=== PATIENT | female | born 1975 | race Two or more races ===

== ENCOUNTER 2017-01-19 20:24 | Inpatient (IN) | payer OTHER ==
--- NOTE | 2017-01-19 21:08 | EDPHY ---
H & P Time Seen by Provider: 01/19/17 21:02 HPI/ROS: CHIEF COMPLAINT: Upper back pain HISTORY OF PRESENT ILLNESS: This patient is a 41 year old female who presents to the Emergency Department complaining of severe pain (9/10) localized to her right upper back and radiating to her right anterior chest beginning approximately one week prior to arrival. Her pain is exacerbated by lying down and has not been effectively alleviated with Motrin. She reports exertional shortness of breath with intermittent dry cough beginning yesterday. She denies pain or swelling in her legs. She was sick two weeks ago with intermittent high fever, nausea, and body aches lasting for approximately two weeks that have since improved. She traveled to [place] on 01/14 and was admitted on 01/16 for pain control for her back pain while in [place]. Medical history includes asthma. No history of blood clots or pneumonia. REVIEW OF SYSTEMS: Constitutional: No fever, no chills Eyes: No visual changes ENT: No sore throat Respiratory: +cough, +shortness of breath Cardiac: +chest pain Gastrointestinal: No nausea, no vomiting, no abdominal pain Genitourinary: No hematuria, no dysuria Musculoskeletal: +upper back pain, no leg pain or swelling Skin: No rash Neurological: No headache, no numbness, no weakness Psychiatric: No depression Past Medical/Surgical History: Asthma. Social History: Never smoked. Lives in [place]. Smoking Status: Never smoked Physical Exam: General Appearance: Alert, no distress Eyes: Pupils equal and round, no conjunctival pallor or injection ENT, Mouth: Mucous membranes moist Neck: Normal inspection Respiratory: Lungs are clear to auscultation Cardiovascular: Regular rate and rhythm Gastrointestinal: Abdomen is soft and non- tender Neurological: A&O, nonfocal, normal gait Skin: Warm and dry, no rash Extremities: Nontender, no pedal edema Psychiatric: Mood and affect normal Constitutional: Initial Vital Signs Temperature (C) 37.1 C 01/19/17 20:29 Heart Rate 106 H 01/19/17 20:29 Respiratory Rate 16 01/19/17 20:29 Blood Pressure 135/86 H 01/19/17 20:29 O2 Sat (%) 91 L 01/19/17 20:29 O2 Delivery Mode Nasal Cannula O2 (L/minute) 3 Allergies/Adverse Reactions: bee pollen Allergy (Verified 01/19/17 20:28) cantaloupe Allergy (Uncoded 01/19/17 20:28) honeydew Allergy (Uncoded 01/19/17 20:28) peaches Allergy (Uncoded 01/19/17 20:28) Home Medications: Medication Instructions Recorded Albuterol [Proventil Inhaler HFA 2 puffs IH Q4 PRN 01/20/17 (*)] Vashti 24hr Tab 1 tab PO DAILY 01/20/17 Herbals/Supplements -Info Only 1 ea PO DAILY 01/20/17 Naproxen Sodium [Aleve 220 MG (*)] 440 mg PO BID PRN 01/20/17 Medical Decision Making - Diagnostics Imaging: Study: X-ray of the chest Indication: Shortness of breath, chest pain Results: X-ray of the chest was obtained. The results of the study are: Diffuse right hemithoracic pleural-parenchymal abnormality, of indeterminate etiology. The study was read by the radiologist, Dr. David Sandoval. I viewed the images myself on the PACS system. Study: CT of the chest Indication: Shortness of breath, pain, abnormal x-ray of chest Results: CT of the chest with IV contrast was obtained. The results of the study are: Diffuse subtotal right hemithoracic pleuroparenchymal consolidation with a large right pleural effusion, and areas of compressive atelectasis and/or infiltrate. The study was read by the radiologist, Dr. David Sandoval. I viewed the images myself on the PACS system. ED Course/Re-evaluation: This pt presents with sever right-sided chest pain after an influenza like syndrome. Will proceed with x-ray of the chest and labs. Chest x-ray is abnormal, with a likely effusion involving the right marbella thorax. I discussed this result with the patient and obtained her consent to proceed with CT of the chest without IV contrast. Labs obtained: WBC is elevated at 27.05. Flu screen is negative. Meets SIRS criteria. Additional labs obtained for sepsis screen: Lactate is within normal range at 1.4. Does not meet severe sepsis criteria. Blood cultures were drawn. CT scan of the chest read by Dr. Sandoval reveals a large right pleural effusion and possible right-sided infiltrate. 2255: Consultation with Dr. Jose E Estrada, hospitalist, who reviewed imaging results and accepts admission. Dr. Fuad Gloria was consulted for chest tube placement. Antibiotics per Dr. Jose E Estrada after the pleural fluid is obtained. Differential Diagnosis: Differential diagnosis includes does not limited to acute coronary syndrome, pneumonia, pulmonary embolism, tumor. - Data Points Laboratory Results: Laboratory Results 01/20/17 04:15 01/20/17 04:15 01/20/17 01/20/17 01/20/17 09:40 04:15 04:15 WBC RBC Hgb Hct MCV MCH MCHC RDW Plt Count MPV Neut % (Auto) Lymph % (Auto) Dolores % (Auto) Eos % (Auto) Baso % (Auto) Nucleat RBC Rel Count Absolute Neuts (auto) Absolute Lymphs (auto) Absolute Monos (auto) Absolute Eos (auto) Absolute Basos (auto) Absolute Nucleated RBC Immature Gran % Seg Neutrophils % Band Neutrophils % Lymphocytes % Monocytes % Metamyelocytes % Immature Gran # Absolute Seg Neuts Absolute Band Neuts Absolute Lymphocytes Absolute Monocytes Absolute Metamyelocyte Platelet Estimate Large Platelets Giant Platelets Polychromasia Hypochromasia Sodium 136 mEq/L mEq/L (134-144) Potassium 4.8 mEq/L mEq/L (3.5-5.2) Chloride 107 mEq/L mEq/L (97-110) Carbon Dioxide 20 mEq/l L mEq/l (22-31) Anion Gap 9 mEq/L mEq/L (8-16) BUN 22 mg/dL mg/dL (7-23) Creatinine 1.3 mg/dL H mg/dL (0.6-1.0) Estimated GFR 45 Glucose 84 mg/dL mg/dL (70-100) Calcium 7.8 mg/dL L mg/dL (8.5-10.4) Fl Pathologist Review Pleural LDH HIV 1&2 Antibody Pending Influenza A & B (PCR) NEGATIVE FOR FLU (NEGATIVE) 01/20/17 01/20/17 04:15 02:35 WBC 20.17 10^3/uL H 10^3/uL (3.80-9.50) RBC 3.52 10^6/uL L 10^6/uL (4.18-5.33) Hgb 9.3 g/dL L g/dL (12.6-16.3) Hct 28.4 % L % (38.0-47.0) MCV 80.7 fL L fL (81.5-99.8) MCH 26.4 pg L pg (27.9-34.1) MCHC 32.7 g/dL g/dL (32.4-36.7) RDW 16.5 % H % (11.5-15.2) Plt Count 419 10^3/uL H 10^3/uL (150-400) MPV 11.6 fL fL (8.7-11.7) Neut % (Auto) Not Reported Lymph % (Auto) Not Reported Dolores % (Auto) Not Reported Eos % (Auto) Not Reported Baso % (Auto) Not Reported Nucleat RBC Rel Count 0.0 % % (0.0-0.2) Absolute Neuts (auto) Not Reported Absolute Lymphs (auto) Not Reported Absolute Monos (auto) Not Reported Absolute Eos (auto) Not Reported Absolute Basos (auto) Not Reported Absolute Nucleated RBC 0.00 10^3/uL 10^3/uL (0-0.01) Immature Gran % Not Reported Seg Neutrophils % 74 % % Band Neutrophils % 13 % % Lymphocytes % 11 % % Monocytes % 1 % % Metamyelocytes % 1 % % Immature Gran # Not Reported Absolute Seg Neuts 14.93 10^/uL H 10^/uL (1.70-6.50) Absolute Band Neuts 2.62 10^3/uL H 10^3/uL (0.00-0.70) Absolute Lymphocytes 2.22 10^3/uL 10^3/uL (1.00-3.00) Absolute Monocytes 0.20 10^3/uL L 10^3/uL (0.30-0.80) Absolute Metamyelocyte 0.20 10^3/mL H 10^3/mL (0.00-0.00) Platelet Estimate ADEQUATE (ADEQ) Large Platelets PRESENT H Giant Platelets PRESENT H Polychromasia 1+ H Hypochromasia 1+ H Sodium Potassium Chloride Carbon Dioxide Anion Gap BUN Creatinine Estimated GFR Glucose Calcium Fl Pathologist Review Harvey MACHUCA MD Pleural LDH > 72503 IU/L IU/L HIV 1&2 Antibody Influenza A & B (PCR) Microbiology Results: MICROBIOLOGY 01/20/17 02:35 Pleural Fluid - Other Gram Stain - Final 01/20/17 02:35 Pleural Fluid - Other Body Fluid Culture - Preliminary 01/20/17 00:12 Lung - Lung ERIC Preparation - Final Medications Given: Discontinued Medications Fentanyl (Sublimaze) 100 mcg IVP EDNOW ONE Stop: 01/20/17 00:30 Last Admin: 01/19/17 23:55 Dose: 100 mcg Departure - Departure Disposition: [facility] Inpatient Acute Clinical Impression: Pleural effusion Condition: Fair Report Scribed for: Iliana Hernandez Report Scribed by: Coco Chang Date of Report: 01/19/17 Time of Report: 21:08 Physician Review and Approval Statement: 01/19/17 21:08 Portions of this note were transcribed by a medical appointment scheduler. I personally performed a history, physical exam, medical decision making, and confirmed accuracy of information the transcribed note.
[2017-01-19 21:53] LABS: ADD DIFF? YES; ADD MORPH? NO; ADD SCAN? NO; ATYPICAL LYMPHOCYTE FLAG 10 (0-99); FRAGMENT RBC FLAG 40 (0-99); HEMATOCRIT 31.9 % (38.0-47.0); HEMOGLOBIN 10.3 g/dL (12.6-16.3); LEFT SHIFT FLG 20 (0-99); LIPEMIA HEMOLYSIS FLAG 80 (0-99); MEAN CELL HEMOGLOBIN 26.3 pg (27.9-34.1); MEAN CELL HEMOGLOBIN CONCENTR. 32.3 g/dL (32.4-36.7); MEAN CELL VOLUME 81.4 fL (81.5-99.8); MEAN PLATELET VOLUME 11.9 fL (8.7-11.7); PLATELET CLUMPS FLAG 0 (0-99); PLATELET COUNT 440 10^3/uL (150-400); RED BLOOD CELL COUNT 3.92 10^6/uL (4.18-5.33); RED CELL DISTRIBUTION WIDTH 16.6 % (11.5-15.2)
[2017-01-19 22:07] LABS: INR 1.26 (0.83-1.16); PROTIME(PATIENT) 15.8 SEC (12.0-15.0)
[2017-01-19 22:08] LABS: APTT 31.4 SEC (23.0-38.0)
[2017-01-19 22:10] LABS: ANION GAP 14 mEq/L (8-16); CALCIUM 8.4 mg/dL (8.5-10.4); CARBON DIOXIDE 21 mEq/l (22-31); CHLORIDE 106 mEq/L (97-110); CREATININE 1.3 mg/dL (0.6-1.0); GLOMERULAR FILTRATION RATE 45; GLUCOSE 94 mg/dL (70-100); POTASSIUM 4.4 mEq/L (3.5-5.2); SODIUM 141 mEq/L (134-144)
[2017-01-19] MEDS ORDERED: IOPAMIDOL (ISOVUE-300) 100 ML BTL IV ONE (22:11)
[2017-01-19 22:45] LABS: TOXIC VACUOLIZATION PRESENT
[2017-01-19 22:52] LABS: POLYCHROMASIA 1+
[2017-01-19 22:55] LABS: GIANT PLATELETS PRESENT; HYPOCHROMIA 1+; LARGE PLATELETS PRESENT; PLATELET ESTIMATE ADEQUATE (ADEQ)
[2017-01-19] MEDS ORDERED: ONDANSETRON 4 MG/2 ML VIAL IVP PRN (23:09)
[2017-01-19] MEDS ORDERED: fentaNYL 100 MCG/2 ML INJ ONE (23:53)
--- NOTE | 2017-01-20 00:06 | GHP ---
DATE OF ADMISSION: 01/19/2017 CHIEF COMPLAINT: Right-sided chest and back pain. HISTORY OF PRESENT ILLNESS: This is a 41-year-old female, who presents with right-sided chest and b ack pain. History is notable for having "the flu" about 2 weeks ago. Her symptoms at that time inc luded cough, high fever, and myalgias. She was never tested for the flu nor did she see a physician . She says that this lasted about 12 days. This resolved earlier this week while she was in [place] . She then had subacute onset of right-sided chest and back pain described as severe. This is also associated with some shortness of breath. She presented to a hospital in [place], at which time the y did a lumbar spine x-rays. They determined that the cause of this was musculoskeletal and dischar ged her. Notably, they never imaged her chest and thorax. She presents to the hospital today with ongoing symptoms. She believes that she had a fever last 3 days ago. She notes that she has had no trauma recently. She does not smoke. PAST MEDICAL HISTORY: Asthma. MEDICATIONS: Albuterol, Vashti, Aleve. ALLERGIES: Bee pollen, cantaloupe, honeydew, and peaches. FAMILY HISTORY: No lung disease. SOCIAL HISTORY: She lives in a condo. She does drink. She does not smoke. REVIEW OF SYSTEMS: Ten-point review of systems is conducted, and is negative except per HPI. PHYSICAL EXAM: VITAL SIGNS: Blood pressure is 135/86, heart rate is 106, respiration rate 16, satu rating 91% on room air. Temperature is 37.1. GENERAL: The patient is a pleasant female who is lyi ng in bed. She appears in moderate respiratory distress. HEENT: Shows pupils to be equal, round, and reactive. Mucous membranes are moist. HEAD: Normocephalic, atraumatic. CARDIOVASCULAR: Exam shows regular rate and rhythm. She is borderline tachycardic. No murmurs, rubs, or gallops. PULM ONARY: Exam shows markedly diminished breath sounds on the right. Otherwise, she is clear to auscu ltation bilaterally. She is in some respiratory distress. ABDOMEN: Soft, nontender, nondistended. SKIN: Shows no rash. : Shows no Mcmillan. NEUROLOGIC: Shows her to be alert and oriented x3. S he is moving all extremities. PSYCHIATRIC: Exam shows normal mood and affect. LABORATORY DATA: White count is 27, hemoglobin is 10.3, platelets are 440, this is 81% neutrophils with 8% bandemia. INR is 1.26. Lactate is 1.4. Creatinine is 1.3. Influenza is negative. DATA: 1. I discussed this with Dr. Hernandez. We will plan to admit to med/surgery. 2. Chest CT, which I personally viewed and interpreted, shows diffuse subtotal right hemithoracic p leural parenchymal consolidation, with a large right pleural effusion, with compressive atelectasis. 3. Chest x-ray, which I personally reviewed and interpreted, shows likely a large right-sided pleur al effusion. IMPRESSION AND PLAN: 1. This is a 41-year-old female with large right-sided pleural effusion concerning for parapneumoni c versus empyema. Dr. Gloria has been consulted; he has seen the patient now. We will discuss w ith him the need for possible chest tube. Regardless, would like to sample some fluid tonight, and start antibiotics, given her markedly high white count and dyspnea. I placed an Infectious Disease consult. I think she is appropriate for a med/surgery bed. This is an overall high-risk diagnosis. 2. Leukocytosis: Likely related to this. 3. Anemia: Unclear chronicity. Will recheck tomorrow. 4. Thrombocytosis: Likely reactive. 5. Likely mild acute kidney injury: Will hydrate and recheck tomorrow. /[id number]/MODL
--- NOTE | 2017-01-20 00:24 | POSTOPPROG ---
Post Op Note Date of Operation: 01/20/17 Surgeon: Fuad Gloria Anesthesia: IV Sedation, Local (Specify) Pre-op Diagnosis: r empyema Post-op Diagnosis: same Indication: same Procedure: right chest tube placement Inf/Abcess present in the surg proc area at time of surgery?: Yes Depth: Organ Space EBL: Minimal (cultures sent)
[2017-01-20] MEDS ORDERED: fentaNYL 100 MCG/2 ML INJ IVP ONE (00:29)
--- NOTE | 2017-01-20 00:57 | GOP ---
DATE OF OPERATION: SURGEON: Fuad Gloria MD PREOPERATIVE DIAGNOSIS: Right empyema/infected parapneumonic effusion. POSTOPERATIVE DIAGNOSIS: Right empyema/infected parapneumonic effusion. PROCEDURE PERFORMED: Right chest tube. FINDINGS: INDICATIONS: A 41-year-old female admitted through the emergency room. CAT scan shows 80% of the r ight chest full of fluid, with a compressed lung cephalad. The patient has had a flu-like illness r ecently. White count 27,000. DESCRIPTION OF PROCEDURE: After informed consent and a time out, the patient was positioned right s argenis up on her side. The chest laterally scrubbed with ChloraPrep, draped in the usual sterile fashi on. Lidocaine was infiltrated over the midclavicular line. Approximately 4th or 5th interspace, an incision made, and additional lidocaine infiltrated in the fat. A clamp was used to get down to th e intercostal musculature where additional lidocaine was infiltrated. Synthetic clamp was then philipp ed into the rib space in a completely painless fashion. Cloudy fluid was obtained, no odor. A ches t tube placed, and approximately 2000 mL of fluid immediately obtained. The tube was sewn with 0 si lk to the patient, and the incision closed down with additional 0 silk sutures. A gauze dressing wa s applied, and then bulky tape to secure the chest tube. A chest x-ray post procedure was ordered. Patient tolerated the procedure well. SURGEON: Fuad Gloria MD. /[id number]/MODL
[2017-01-20] MEDS: NS 1,000 ML IV SCH ×2 (01:03→12:02)
[2017-01-20] MEDS: PIPERACILLIN/TAZO 4.5 GM/DEX 100 ML IV SCH ×5 (01:39→23:20)
[2017-01-20 05:21] LABS: LD, PLEURAL FLUID > 10000 IU/L
[2017-01-20 06:21] LABS: ADD DIFF? YES; ADD MORPH? NO; ADD SCAN? NO; ATYPICAL LYMPHOCYTE FLAG 0 (0-99); FRAGMENT RBC FLAG 40 (0-99); HEMATOCRIT 28.4 % (38.0-47.0); HEMOGLOBIN 9.3 g/dL (12.6-16.3); LEFT SHIFT FLG 20 (0-99); LIPEMIA HEMOLYSIS FLAG 80 (0-99); MEAN CELL HEMOGLOBIN 26.4 pg (27.9-34.1); MEAN CELL HEMOGLOBIN CONCENTR. 32.7 g/dL (32.4-36.7); MEAN CELL VOLUME 80.7 fL (81.5-99.8); MEAN PLATELET VOLUME 11.6 fL (8.7-11.7); PLATELET CLUMPS FLAG 30 (0-99); PLATELET COUNT 419 10^3/uL (150-400); RED BLOOD CELL COUNT 3.52 10^6/uL (4.18-5.33); RED CELL DISTRIBUTION WIDTH 16.5 % (11.5-15.2)
--- NOTE | 2017-01-20 06:49 | SOAPPROG ---
SOAP Progress Note Assessment/Plan: Assessment: Plan: Subjective: feels better ct tube in good location, 2100 out total. possible tiny air leak this am. continue water seal. Objective: Vital Signs Temp Pulse Resp BP Pulse Ox 36.7 C 83 16 124/68 H 94 01/20/17 04:21 01/20/17 04:21 01/20/17 04:21 01/20/17 04:21 01/20/17 04:21 Laboratory Results 01/20/17 04:15 01/19/17 01/20/17 01/21/17 05:59 05:59 05:59 Intake Total 1120 Output Total 67 Balance 1053 PT 15.8 SEC (12.0-15.0) H 01/19/17 21:30 INR 1.26 (0.83-1.16) H 01/19/17 21:30 ICD10 Worksheet Patient Problems: Problems Problem Status Onset Pleural effusion Acute
[2017-01-20 06:54] LABS: ANION GAP 9 mEq/L (8-16); CALCIUM 7.8 mg/dL (8.5-10.4); CARBON DIOXIDE 20 mEq/l (22-31); CHLORIDE 107 mEq/L (97-110); CREATININE 1.3 mg/dL (0.6-1.0); GLOMERULAR FILTRATION RATE 45; GLUCOSE 84 mg/dL (70-100); POTASSIUM 4.8 mEq/L (3.5-5.2); SODIUM 136 mEq/L (134-144)
[2017-01-20] MEDS: oxyCODONE IR 5 MG TAB PO PRN ×5 (07:27→22:32)
[2017-01-20 07:48] LABS: GIANT PLATELETS PRESENT; HYPOCHROMIA 1+; LARGE PLATELETS PRESENT; PLATELET ESTIMATE ADEQUATE (ADEQ); POLYCHROMASIA 1+
[2017-01-20] MEDS ORDERED: ALBUTEROL 60 PUFFS/8 GM MDI IH PRN (09:42)
--- NOTE | 2017-01-20 09:51 | HOSPPROG ---
Hospitalist Progress Note Assessment/Plan: Patient is a 41 y/o female who presented to the ER with right-sided chest pain and back pain. She had been feeling poorly, flu like symptoms. Never quite improved but went to [place] and developed severe right sided chest pain. Reviewed her care with Dr Banerjee/ today is my first encounter with the patient, chart reviewed. #. right sided pleural effusion/right side empyema -Zosyn -s/p CT placement w Dr Gloria -appreciate Dr Banerjee #. Leukocytosis -wbc improving, but still elevated #. anemia -follow -likely due to acute illness #. tachycardia -due to acute illness #. renal insufficiency -will follow and hydrate #. asthma -resume inhaler and add neb treatments #.dispo: patient will require > 2 midnight stay for IV abx and has a CT placed Subjective: Diana is feeling better today / CT is uncomfortable, but the overall pain is better in her right cw area. Objective: Vital Signs Temp Pulse Resp BP Pulse Ox 36.6 C 82 20 119/62 97 01/20/17 07:42 01/20/17 07:42 01/20/17 07:42 01/20/17 07:42 01/20/17 07:42 Microbiology 01/20/17 02:35 Gram Stain - Final Pleural Fluid - Other Laboratory Results 01/20/17 04:15 01/20/17 04:15 01/19/17 01/20/17 01/21/17 05:59 05:59 05:59 Intake Total 1120 Output Total 67 Balance 1053 PT 15.8 SEC (12.0-15.0) H 01/19/17 21:30 INR 1.26 (0.83-1.16) H 01/19/17 21:30 - Physical Exam Constitutional: appears nourished, uncomfortable Eyes: anicteric sclera Ears, Nose, Mouth, Throat: hearing normal Cardiovascular: regular rate and rhythym Respiratory: no respiratory distress, reduced air movement (right base thru the middle lobe/ has some scattered expiratory wheezes bilaterally) Gastrointestinal: normoactive bowel sounds Skin: warm, normal color, other (multiple tattoos) Musculoskeletal: no muscle tenderness Neurologic: AAOx3 Psychiatric: interacting appropriately, not anxious ICD10 Worksheet Patient Problems: Problems Problem Status Onset Pleural effusion Acute
--- NOTE | 2017-01-20 10:17 | GCON ---
INFECTIOUS DISEASE CONSULTATION REFERRING PHYSICIAN: Jose E Estrada MD REASON FOR CONSULT: To assist in the management of this 41-year-old female admitted with right-sided empyema status post drainage. HISTORY OF PRESENT ILLNESS: The patient is a 41-year-old female whose previous medical history is notable for the followin. Inhaler-controlled asthma. Regarding her present issues, the patient states that she was in her usual state of good health until approximately 2 weeks ago, when she developed a flu- like illness consisting of myalgias, chills, tactile fevers, and sweats. She denies any respiratory symptoms or GI symptoms at that time. She states that the illness lasted approximately 12 days and, when she traveled to [facility] on January 14, she was feeling much better. She was feeling "decent," but tired. The day that she arrived in [place], that evening she was woken from sleep by severe pain underneath her right breast. On Saturday this continued to get worse , so she saw the [place] doctor who did an x-ray of her back (not her chest). She got a shot of an unknown narcotic and, because of her severe pain, they kept her overnight in a private hospital in [facility]. She states that she was given morphine and a muscle relaxant, but no chest x-ray was done. She states that she did not have a fever during that time, but was taking nonsteroidals. She was discharged on Saturday with a prescription for tramadol and a nonsteroidal. On , she states that the pain was severe, requiring Aleve around the clock. It continued on Saturday. Yesterday, she flew home to [place] and came directly to our emergency department. She states that over the past 48 hours her breathing has become more labored and she has become significantly short of breath. She did have chills, but did not take her temperature to see whether or not she had a fever. In our emergency department, the patient's temperature was 37.1, respiratory rate 16, blood pressure 135/86. A chest x-ray done was done revealing diffuse right hemithoracic pleural-parenchymal abnormality necessitating a CT scan. The CT scan showed "diffuse subtotal right hemithoracic pleural-parenchymal consolidation with large right pleural effusion and areas of compressive atelectasis and/or infiltrate." The patient was seen by Dr. Fuad Gloria, who inserted a chest tube given the patient's large pleural effusion. Approximately 2000 cc of cloudy fluid was removed without odor. The patient tolerated the procedure with no consequential pneumothorax. I called the [facility], and the Gram stain shows 1+ GPCs. She was started on Zosyn, and I am now asked to assist in her management. In speaking with the patient today, she states she feels much better after the chest tube insertion. She feels that she can breathe easier. Aside from the shortness of breath, she states that she has not had a cough per se, but has felt quite tired. She also states she has had some mild dysuria over the past 48 hours, which is gone now. She states she traveled to [place] with her sister and essentially did not do much the entire time other than lay on the sand because she was feeling so unwell. She did not do anything unusual while she was there. REVIEW OF SYSTEMS: Notable for the above. Otherwise, 10 systems reviewed and all are negative. She denies any weight loss, significant anorexia, drenching night sweats, or other. PAST MEDICAL HISTORY: As per the above. MEDICATIONS: Presently include Zosyn 4.5 g IV q.6 hours. ALLERGIES: Multiple food allergies, but no medication allergies. SOCIAL HISTORY: The patient lives in [place] with a female roommate who was well. She has 2 indoor cats. She is single and has no children. She has sex only with men and has a current stable partner. 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 She drinks minimal alcohol. No illicit substances, other than occasional marijuana. No history of hepatitis C. She has not been incarcerated or in imprisoned. She states travel to [place] last year where her family is from for just a brief period when her grandmother . No other unusual exposures. Last mammogram 1 year ago, which was negative. FAMILY HISTORY: Notable for 2 sisters who are healthy. Mother and father who are healthy save for hypertension in her father. PHYSICAL EXAM: VITAL SIGNS: T-current 36.6, T-max 37.1. Heart rate 82, blood pressure 119/62, 97% on 3 L. GENERAL: A well-nourished, well-developed female , lying in bed, no apparent distress. HEENT: Atraumatic, normocephalic. Pupils equal, round, reactive to light. Extraocular movements are intact. No conjunctival injection. No icterus or petechiae. No sinus process tenderness or discharge from the nares. Mucous membranes moist. No oral lesions noted. Dentition in fair repair. No thrush. NECK: Trachea is midline. No cervical or supraclavicular lymphadenopathy. CARDIOVASCULAR: S1, S2. No rubs, gallops , or murmurs. CHEST: Pendulous breasts. No obvious breast abnormality. LUNGS : Chest tube is in place on the right draining some serosanguineous fluid. Decreased breath sounds throughout the right lung field. The left lung is clear with no wheeze. No significant increased respiratory effort. ABDOMEN: Obese, soft. No organomegaly or tenderness to palpation. EXTREMITIES: No clubbing, cyanosis, or edema. SKIN: Warm and dry. Multiple tattoos. The patient has her tongue pierced and her right eyebrow pierced. No stigmata of endocarditis. NEUROLOGIC: Alert and oriented x3. No focal deficits. LABORATORY DATA: Microbiologic data: Pleural fluid Gram stain. I called the Micro Lab. It is showing 1+ GPCs. Culture is pending. Blood cultures x2 are pending. White blood cell count of 20, down from 27. Hematocrit of 28, platelet count of 419, 74% neutrophils, 13% bands. INR 1.2. BUN and creatinine 22/1.3. No previous creatinine on file for this patient. Pleural fluid was red and cloudy. PH of 7, white blood cells of 59,984, 84% neutrophils. Red blood cells of 126,067. Pleural fluid LDH greater than 10,000. Pleura glucose less than 20. Influenza DFA was negative. Radiographic studies as outlined above. IMPRESSION: 41-year-old otherwise healthy female, status post flu-like illness approximately 2 weeks ago, who now presents with right-sided empyema. Pathogens to consider after what may have been influenza include Staphylococcus aureus, Streptococcus pneumoniae, and group A strep. Strep milleri group, microaerophilic streptococci, anaerobes, also possible. Fusobacterium seems less likely given Gram stain. Doubt other more unusual organisms such as coccidiomycosis given that the patient's symptoms proceeded her brief trip. PLAN: 1. Continue Zosyn as is for now and await culture results; suspect we will be able to tailor the patient's antibiotic in short order as Pseudomonas unlikely. 2. Obtain HIV antibody test for completeness' sake. 3. Blood cultures are pending. Thank you very much for consulting Infectious Diseases. We will continue to follow this patient with you. /[id number]/MODL MTDD
[2017-01-20] MEDS: IPRATROPIUM/ALBUTEROL 3 ML DEYVIAL IH SCH ×3 (11:26→22:41)
[2017-01-21] MEDS: oxyCODONE IR 5 MG TAB PO PRN ×5 (01:15→23:19)
[2017-01-21] MEDS: NS 1,000 ML IV SCH ×3 (01:17→21:42)
[2017-01-21] MEDS: PIPERACILLIN/TAZO 4.5 GM/DEX 100 ML IV SCH ×4 (05:16→23:19)
[2017-01-21 05:17] LABS: ADD DIFF? YES; ADD MORPH? NO; ADD SCAN? NO; ATYPICAL LYMPHOCYTE FLAG 30 (0-99); FRAGMENT RBC FLAG 20 (0-99); HEMATOCRIT 26.9 % (38.0-47.0); HEMOGLOBIN 8.5 g/dL (12.6-16.3); LEFT SHIFT FLG 30 (0-99); LIPEMIA HEMOLYSIS FLAG 80 (0-99); MEAN CELL HEMOGLOBIN 26.2 pg (27.9-34.1); MEAN CELL HEMOGLOBIN CONCENTR. 31.6 g/dL (32.4-36.7); MEAN PLATELET VOLUME 10.9 fL (8.7-11.7); PLATELET CLUMPS FLAG 0 (0-99); PLATELET COUNT 424 10^3/uL (150-400); RED BLOOD CELL COUNT 3.24 10^6/uL (4.18-5.33); RED CELL DISTRIBUTION WIDTH 16.7 % (11.5-15.2)
[2017-01-21] MEDS: IPRATROPIUM/ALBUTEROL 3 ML DEYVIAL IH SCH ×4 (05:24→22:37)
[2017-01-21 05:29] LABS: ALANINE AMINOTRANSFERASE 29 IU/L (9-52); ALBUMIN 2.1 g/dL (3.5-5.0); ALKALINE PHOSPHATASE 112 IU/L (38-126); ANION GAP 7 mEq/L (8-16); ASPARTATE AMINOTRANSFERASE 23 IU/L (14-46); BILIRUBIN,TOTAL 0.5 mg/dL (0.1-1.4); CALCIUM 7.7 mg/dL (8.5-10.4); CARBON DIOXIDE 24 mEq/l (22-31); CHLORIDE 105 mEq/L (97-110); CREATININE 1.2 mg/dL (0.6-1.0); GLOMERULAR FILTRATION RATE 49; GLUCOSE 84 mg/dL (70-100); POTASSIUM 4.7 mEq/L (3.5-5.2); SODIUM 136 mEq/L (134-144); TOTAL PROTEIN 6.1 g/dL (6.3-8.2)
[2017-01-21 06:10] LABS: PLATELET ESTIMATE INCREASED (ADEQ)
[2017-01-21] MEDS: ONDANSETRON DISINTEGRATING 4 MG TAB PO PRN (07:32)
[2017-01-21] MEDS: ACETAMINOPHEN 325 MG TAB PO PRN ×2 (08:56→21:41)
[2017-01-21] MEDS ORDERED: Herbals/Supplements -Info Only PO SCH (09:00)
[2017-01-21] MEDS ORDERED: PROMETHAZINE HCL 25 MG TAB PO PRN (09:28)
[2017-01-21] MEDS ORDERED: IBUPROFEN 200 MG TAB PO ONE ×2 (09:29→13:24)
--- NOTE | 2017-01-21 09:31 | HOSPPROG ---
Hospitalist Progress Note Assessment/Plan: Patient is a 41 y/o female who presented to the ER with right-sided chest pain and back pain. She had been feeling poorly, flu like symptoms. Never quite improved but went to [place] and developed severe right sided chest pain. #. right sided pleural effusion/right side empyema -Zosyn -s/p CT placement w Dr Gloria -blood cx NGTD #headache w associated nausea -little relief w Zofran, trial of Phenergan -Tylenol/ ibuprofen #. Leukocytosis -wbc improving #. anemia -follow -likely due to acute illness -will heme stools, check iron studies -patient has heavy menses #. tachycardia -resolved #. renal insufficiency -improved #. asthma -resume inhaler and add neb treatments -stable #.dispo: pending/ will discuss w ID about poss PICC placement/ will likely need iv abx for a period of time Subjective: Diana is c/o of a headache and associated nausea. Objective: Vital Signs Temp Pulse Resp BP Pulse Ox 36.6 C 73 14 133/67 H 95 01/21/17 07:28 01/21/17 07:28 01/21/17 07:28 01/21/17 07:28 01/21/17 07:28 Laboratory Results 01/21/17 04:20 01/21/17 04:20 01/20/17 01/21/17 01/22/17 05:59 05:59 05:59 Intake Total 2100 Output Total 2903 600 Balance -803 -600 PT 15.8 SEC (12.0-15.0) H 01/19/17 21:30 INR 1.26 (0.83-1.16) H 01/19/17 21:30 - Physical Exam Constitutional: uncomfortable Eyes: PERRL Ears, Nose, Mouth, Throat: hearing normal Cardiovascular: regular rate and rhythym Respiratory: no respiratory distress, reduced air movement (right base, middle lobe), other (CT with serous drainage/no air leak) Gastrointestinal: soft, non-tender abdomen Skin: warm Musculoskeletal: no muscle tenderness Neurologic: AAOx3 Psychiatric: interacting appropriately ICD10 Worksheet Patient Problems: Problems Problem Status Onset Pleural effusion Acute
--- NOTE | 2017-01-21 11:56 | PCMIDPN ---
Assessment/Plan: Assessment: Right-sided complicated parapneumonic effusion with alpha hemolytic streptococci growing from the removed fluid. This represents either Streptococcus pneumoniae or strep viridans. Either way this is by history a likely complication of influenza. Patient is currently covered with Zosyn. This is likely a broader spectrum that is needed given the alpha hemolytic strep isolate. Will change to ceftriaxone daily for coverage. Plan to have at least 2 weeks of IV antibiotics after drainage. Plan: 1. Discontinue IV Zosyn. 2. Start IV ceftriaxone 1 g Q 24 hours. 3. Follow final identification from the pleural fluid. 4. Follow her clinical improvement. Subjective: Patient states that she is feeling fairly well. No new complaints except from minor pain associated with the chest tube. No shortness of breath. No fevers or chills. Objective: Zosyn #2 Vital Signs Temp Pulse Resp BP Pulse Ox 36.5 C 84 18 133/67 H 89 L 01/21/17 11:46 01/21/17 11:46 01/21/17 11:46 01/21/17 11:46 01/21/17 11:46 Laboratory Results 01/21/17 04:20 01/21/17 04:20 01/20/17 01/21/17 01/22/17 05:59 05:59 05:59 Intake Total 2100 Output Total 2903 600 Balance -803 -600 - Physical Exam General Appearance: WD/WN, alert, no apparent distress, non-toxic Respiratory: lungs clear, normal breath sounds, other (Chest tube in place right side. Serosanguineous fluid draining.), No respiratory distress, No crackles, No wheezing Cardiac/Chest: regular rate, rhythm, No tachycardia Extremities: non-tender, normal inspection Skin: normal color, warm/dry, No rash Neuro/Psych: alert, normal mood/affect, oriented x 3 ICD10 Worksheet Patient Problems: Problems Problem Status Onset Pleural effusion Acute
[2017-01-21] MEDS ORDERED: ALTEPLASE 2 MG VIAL IVP PRN (12:00)
[2017-01-21] MEDS ORDERED: fentaNYL 100 MCG/2 ML INJ ONE (19:38)
[2017-01-22] MEDS: NS 1,000 ML IV SCH ×2 (04:06→14:47)
[2017-01-22] MEDS: oxyCODONE IR 5 MG TAB PO PRN ×5 (04:08→19:40)
[2017-01-22] MEDS: ACETAMINOPHEN 325 MG TAB PO PRN ×2 (04:09→14:00)
[2017-01-22 04:35] LABS: ADD DIFF? YES; ADD MORPH? NO; ADD SCAN? NO; ATYPICAL LYMPHOCYTE FLAG 20 (0-99); FRAGMENT RBC FLAG 20 (0-99); HEMATOCRIT 26.6 % (38.0-47.0); HEMOGLOBIN 8.3 g/dL (12.6-16.3); LEFT SHIFT FLG 20 (0-99); LIPEMIA HEMOLYSIS FLAG 80 (0-99); MEAN CELL HEMOGLOBIN 25.9 pg (27.9-34.1); MEAN CELL HEMOGLOBIN CONCENTR. 31.2 g/dL (32.4-36.7); MEAN CELL VOLUME 83.1 fL (81.5-99.8); MEAN PLATELET VOLUME 10.7 fL (8.7-11.7); PLATELET CLUMPS FLAG 10 (0-99); PLATELET COUNT 479 10^3/uL (150-400); RED CELL DISTRIBUTION WIDTH 16.3 % (11.5-15.2)
[2017-01-22 05:28] LABS: HYPOCHROMIA 1+; PLATELET ESTIMATE ADEQUATE (ADEQ)
[2017-01-22 05:29] LABS: TOTAL IRON BINDING CAPACITY 143 ug/dL (260-490)
[2017-01-22] MEDS: PIPERACILLIN/TAZO 4.5 GM/DEX 100 ML IV SCH (05:29)
[2017-01-22 05:31] LABS: % SATURATION 7 % (20-55); IRON < 10.1 mcg/dL (37-170)
[2017-01-22 05:34] LABS: GIANT PLATELETS PRESENT; SCHISTOCYTES 1+
[2017-01-22] MEDS: IPRATROPIUM/ALBUTEROL 3 ML DEYVIAL IH SCH ×4 (05:51→22:11)
[2017-01-22] MEDS: ONDANSETRON DISINTEGRATING 4 MG TAB PO PRN (07:36)
--- NOTE | 2017-01-22 08:51 | HOSPPROG ---
Hospitalist Progress Note Assessment/Plan: Patient is a 41 y/o female who presented to the ER with right-sided chest pain and back pain. She had been feeling poorly, flu like symptoms. Never quite improved but went to [place] and developed severe right sided chest pain. #. right sided pleural effusion/right side empyema -changed to ceftriaxone/ cx stept pna -s/p CT placement w Dr Gloria -blood cx NGTD -reviewed chest xray with Dr Gloria/ looks worse than previous/ he is recommending a CT scan with contrast -reviewed her care with Dr Bethea -PICC placed yesterday #headache w associated nausea -Tylenol/ ibuprofen/ Phenergan -Excedrin tried #. Leukocytosis -wbc improving #. anemia/iron deficiency -heme stools -need oral iron, but is too nauseated -patient has heavy menstrual cycles -follow -likely due to acute illness -will heme stools, check iron studies -patient has heavy menses #. tachycardia -resolved #. renal insufficiency -improved -recheck in a.m #. asthma -resume inhaler and add neb treatments -stable #.dispo: pending/ Subjective: Diana is feeling better overall, but is having a headache. Objective: Vital Signs Temp Pulse Resp BP Pulse Ox 36.9 C 76 16 135/80 H 94 01/22/17 07:33 01/22/17 07:33 01/22/17 07:33 01/22/17 07:33 01/22/17 07:33 Laboratory Results 01/22/17 04:00 01/21/17 04:20 01/21/17 01/22/17 01/23/17 05:59 05:59 05:59 Intake Total 2100 1053 Output Total 2903 2135 Balance -803 -1082 PT 15.8 SEC (12.0-15.0) H 01/19/17 21:30 INR 1.26 (0.83-1.16) H 01/19/17 21:30 - Physical Exam Constitutional: uncomfortable Eyes: PERRL Ears, Nose, Mouth, Throat: hearing normal Cardiovascular: regular rate and rhythym Respiratory: reduced air movement (right base and throughout most of the right lung/ very little air movement) Gastrointestinal: normoactive bowel sounds Skin: warm Musculoskeletal: full muscle strength Neurologic: AAOx3 Psychiatric: interacting appropriately, not anxious, not encephalopathic ICD10 Worksheet Patient Problems: Problems Problem Status Onset Pleural effusion Acute
--- NOTE | 2017-01-22 08:52 | SOAPPROG ---
SOAP Progress Note Assessment/Plan: Assessment: Plan: Subjective: vss, af pt feels better. fluid still murky. will leave tub in until wbc normal and fluid relatively clear and low vol. Objective: Vital Signs Temp Pulse Resp BP Pulse Ox 36.9 C 76 16 135/80 H 94 01/22/17 07:33 01/22/17 07:33 01/22/17 07:33 01/22/17 07:33 01/22/17 07:33 Laboratory Results 01/22/17 04:00 01/21/17 04:20 01/21/17 01/22/17 01/23/17 05:59 05:59 05:59 Intake Total 2100 1053 Output Total 2903 2135 Balance -803 -1082 PT 15.8 SEC (12.0-15.0) H 01/19/17 21:30 INR 1.26 (0.83-1.16) H 01/19/17 21:30 ICD10 Worksheet Patient Problems: Problems Problem Status Onset Pleural effusion Acute
[2017-01-22] MEDS ORDERED: ACETAMINOPHEN/ASA/CAFFEINE 1 EACH TAB PO PRN (08:57)
--- NOTE | 2017-01-22 09:59 | PCMIDPN ---
Assessment/Plan: Assessment/Plan: 1. Right Empyema s/p Chest tube placement: - Cx with Pneumococcus- bean-sensitive isolate -On zosyn. will change her to ceftriaxone. -f/u CXR images reviewed. still no re-expansion of right lung. Agree with Ct chest to further evaluate. She may need VATS. - Care discussed and coordinated with Surgery and hospitalist team. Meds Zosyn 4.5gm q6- 01/20/17. Subjective: Afebrile. Denies pleuritic cp with deep breathing. Has mild dry cough. Unable to take full deep breaths however. Chest tube in place, with around 160 ml of murky drainage. Denies abd pain or diarrhea. Objective: Vital Signs Temp Pulse Resp BP Pulse Ox 36.9 C 76 16 135/80 H 94 01/22/17 07:33 01/22/17 07:33 01/22/17 07:33 01/22/17 07:33 01/22/17 07:33 Laboratory Results 01/22/17 04:00 01/21/17 04:20 01/21/17 01/22/17 01/23/17 05:59 05:59 05:59 Intake Total 2100 1053 Output Total 2903 2135 Balance -803 1082 - Physical Exam General Appearance: alert, no apparent distress Respiratory: coarse breath sounds Cardiac/Chest: regular rate, rhythm Extremities: No swelling Abdomen: normal bowel sounds, non-tender, soft, No distended Skin: No erythema ICD10 Worksheet Patient Problems: Problems Problem Status Onset Pleural effusion Acute
[2017-01-22] MEDS ORDERED: IOPAMIDOL (ISOVUE-300) 100 ML BTL IV ONE (15:11)
[2017-01-23] MEDS: oxyCODONE IR 5 MG TAB PO PRN ×5 (00:03→22:22)
[2017-01-23] MEDS: ACETAMINOPHEN 325 MG TAB PO PRN ×2 (00:04→23:51)
[2017-01-23] MEDS: NS 1,000 ML IV SCH (00:07)
[2017-01-23 04:49] LABS: ALANINE AMINOTRANSFERASE 34 IU/L (9-52); ALKALINE PHOSPHATASE 79 IU/L (38-126); ANION GAP 6 mEq/L (8-16); ASPARTATE AMINOTRANSFERASE 33 IU/L (14-46); BILIRUBIN,TOTAL 0.3 mg/dL (0.1-1.4); CARBON DIOXIDE 26 mEq/l (22-31); CHLORIDE 106 mEq/L (97-110); CREATININE 0.9 mg/dL (0.6-1.0); GLOMERULAR FILTRATION RATE > 60; GLUCOSE 88 mg/dL (70-100); POTASSIUM 4.8 mEq/L (3.5-5.2); SODIUM 138 mEq/L (134-144); TOTAL PROTEIN 5.9 g/dL (6.3-8.2)
[2017-01-23] MEDS: IPRATROPIUM/ALBUTEROL 3 ML DEYVIAL IH SCH ×4 (05:32→21:47)
--- NOTE | 2017-01-23 09:09 | HOSPPROG ---
Hospitalist Progress Note Assessment/Plan: Patient is a 41 y/o female who presented to the ER with right-sided chest pain and back pain. She had been feeling poorly, flu like symptoms. Never quite improved but went to [place] and developed severe right sided chest pain. #. right sided pleural effusion/right side empyema/strept pna -changed to ceftriaxone (started 01/22) -s/p CT placement w Dr Gloria -blood cx NGTD -CT of chest shows decreased size of loculated pl effusion/ has 2 residual loculations (question if these need drainage?/await for surgery) -PICC #headache w associated nausea -resolved #. Leukocytosis -wbc much improved #. anemia/iron deficiency -heme stools -need oral iron, but is too nauseated -patient has heavy menstrual cycles -follow -likely due to acute illness -will heme stools, check iron studies -patient has heavy menses #. tachycardia -resolved #. renal insufficiency -resolved #. asthma -resume inhaler and add neb treatments -stable #.dispo: pending/ will need IV abx at dc Subjective: Diana is feeling much better today/ no complaints. Headaches have almost completely resolved. Objective: Vital Signs Temp Pulse Resp BP Pulse Ox 37.2 C 85 20 128/74 H 93 01/23/17 08:00 01/23/17 08:00 01/23/17 08:00 01/23/17 08:00 01/23/17 08:00 Laboratory Results 01/22/17 04:00 01/23/17 04:15 01/22/17 01/23/17 01/24/17 05:59 05:59 05:59 Intake Total 1053 3654 Output Total 2135 1990 Balance -1082 1664 PT 15.8 SEC (12.0-15.0) H 01/19/17 21:30 INR 1.26 (0.83-1.16) H 01/19/17 21:30 - Physical Exam Constitutional: no apparent distress Eyes: PERRL Ears, Nose, Mouth, Throat: hearing normal Cardiovascular: regular rate and rhythym Respiratory: no respiratory distress, no rales or rhonchi, reduced air movement (throughout right lung, decreased left base ), other (pleurovac with serous drainage) Gastrointestinal: normoactive bowel sounds Skin: warm Musculoskeletal: no muscle tenderness Neurologic: AAOx3 Psychiatric: interacting appropriately, not anxious ICD10 Worksheet Patient Problems: Problems Problem Status Onset Pleural effusion Acute
--- NOTE | 2017-01-23 14:14 | SOAPPROG ---
SOAP Progress Note Assessment/Plan: Assessment: Plan: Subjective: vss, af, wbc 11k fluid in chest tube very particulate- empyema. may need to leave tube in at dischare. could have ct guided drainage of thelarger loculation. will discuss with ir. Objective: Vital Signs Temp Pulse Resp BP Pulse Ox 37.2 C 81 18 126/79 H 93 01/23/17 08:00 01/23/17 11:54 01/23/17 11:54 01/23/17 11:54 01/23/17 11:54 Laboratory Results 01/22/17 04:00 01/23/17 04:15 01/22/17 01/23/17 01/24/17 05:59 05:59 05:59 Intake Total 1053 8934 Output Total 0615 1989 1250 Balance -1082 1664 -1250 PT 15.8 SEC (12.0-15.0) H 01/19/17 21:30 INR 1.26 (0.83-1.16) H 01/19/17 21:30 ICD10 Worksheet Patient Problems: Problems Problem Status Onset Pleural effusion Acute
[2017-01-23] MEDS ORDERED: BISACODYL 10 MG SUPP PR PRN (15:50)
[2017-01-23] MEDS ORDERED: LACTULOSE 20 GM/30 ML UDCUP PO PRN (15:50)
[2017-01-23] MEDS ORDERED: MAGNESIUM HYDROXIDE 30 ML UDCUP PO PRN (15:50)
--- NOTE | 2017-01-23 19:04 | PCMIDPN ---
Assessment/Plan: Assessment: Right-sided complicated parapneumonic effusion with streptococcus pneumoniae growing from the removed fluid. This is by history a likely complication of influenza. Patient is currently covered with ceftriaxone and tolerating well. However the repeat CT does not show full re-inflation of the R lung and two residual collections of loculated fluid. Feel that this is unlikely improve without further intervention. Noted that surgery is planning to coordinate with IR to intervene. Plan: 1. Continue ceftriaxone 1 g Q 24 hours. 2. Follow up with decision on IR vs surgical intervention due to the remaining collections. Subjective: Patient is doing fairly well although notes becoming winded after moderate activity. No fevers or chills. Some pain with deep inspiration. Objective: ceftriaxone # 3 Vital Signs Temp Pulse Resp BP Pulse Ox 36.3 C 88 18 133/81 H 95 01/23/17 16:00 01/23/17 16:50 01/23/17 16:50 01/23/17 16:00 01/23/17 16:50 Laboratory Results 01/22/17 04:00 01/23/17 04:15 01/22/17 01/23/17 01/24/17 05:59 05:59 05:59 Intake Total 1053 3654 Output Total 2135 1990 1340 Balance -1082 1664 -1340 - Physical Exam General Appearance: WD/WN, alert, no apparent distress, non-toxic Respiratory: No lungs clear (decreased breath sounds R side) Cardiac/Chest: regular rate, rhythm, No tachycardia Skin: normal color, warm/dry, No rash Neuro/Psych: alert, normal mood/affect, oriented x 3 ICD10 Worksheet Patient Problems: Problems Problem Status Onset Pleural effusion Acute
[2017-01-23] MEDS: SENNOSIDES/DOCUSATE SODIUM TAB PO SCH (22:05)
[2017-01-24] MEDS: IPRATROPIUM/ALBUTEROL 3 ML DEYVIAL IH SCH ×4 (04:44→22:30)
[2017-01-24] MEDS: POLYETHYLENE GLYCOL 3350 17 GM PKT PO SCH (08:41)
[2017-01-24] MEDS: SENNOSIDES/DOCUSATE SODIUM TAB PO SCH ×2 (08:41→21:57)
[2017-01-24] MEDS: oxyCODONE IR 5 MG TAB PO PRN ×3 (08:53→20:01)
[2017-01-24] MEDS ORDERED: NALOXONE HCL 0.4 MG/ML INJ ONE (11:38)
[2017-01-24] MEDS ORDERED: FLUMAZENIL 0.5 MG/5 ML MDV IVP ONE (11:38)
[2017-01-24] MEDS ORDERED: MIDAZOLAM 2 MG/2 ML VIAL ONE (11:39)
[2017-01-24] MEDS ORDERED: fentaNYL 100 MCG/2 ML INJ ONE (11:39)
--- NOTE | 2017-01-24 13:10 | POSTOPPROG ---
Post Op Note Date of Operation: 01/24/17 Surgeon: Nathaniel Campbell Anesthesia: IV Sedation Pre-op Diagnosis: Right pleural empyema Post-op Diagnosis: same Indication: Residual undrained fluid, inferiorly Procedure: CT-guided right pleural drain Findings: 12F pigtail tube Inf/Abcess present in the surg proc area at time of surgery?: Yes Depth: Organ Space (Right pleural empyema) EBL: Minimal Complications: 0 Drains: Other (12F multisidehole pigtail drain) Specimen(s): 210 ml cloudy sofia fluid, 40ml sent for microbiology
--- NOTE | 2017-01-24 14:37 | HOSPPROG ---
Hospitalist Progress Note Assessment/Plan: Patient is a 41 y/o female who presented to the ER with right-sided chest pain and back pain. She had been feeling poorly, flu like symptoms. Never quite improved but went to [place] and developed severe right sided chest pain. This is my first encounter with this pt. Chart reviewed. #. right sided pleural effusion/right side empyema/strep pna -changed to ceftriaxone (started 01/22) -s/p CT placement w Dr Gloria -blood cx NGTD -CT of chest shows decreased size of loculated pl effusion/ has 2 residual loculations -to IR today -PICC #headache w associated nausea -resolved #. Leukocytosis -wbc much improved #. anemia/iron deficiency -heme stools -need oral iron, but is too nauseated -patient has heavy menstrual cycles -follow -likely due to acute illness #. tachycardia -resolved #. renal insufficiency -resolved #. asthma -resume inhaler and add neb treatments -stable #.dispo: pending/ will need IV abx at dc Subjective: Feels well. Awaiting IR. Pain stable. No other issues. Objective: Vital Signs Temp Pulse Resp BP Pulse Ox 37.2 C 90 18 126/94 H 93 01/24/17 08:00 01/24/17 10:50 01/24/17 10:50 01/24/17 08:00 01/24/17 08:00 Microbiology 01/24/17 12:50 Gram Stain - Final Pleural Fluid - Aspirate Laboratory Results 01/22/17 04:00 01/23/17 04:15 01/23/17 01/24/17 01/25/17 05:59 05:59 05:59 Intake Total 3653 Output Total 1989 Balance 1663 -2049 PT 15.8 SEC (12.0-15.0) H 01/19/17 21:30 INR 1.26 (0.83-1.16) H 01/19/17 21:30 - Physical Exam Constitutional: no apparent distress, appears nourished, not in pain Eyes: PERRL, anicteric sclera, EOMI Ears, Nose, Mouth, Throat: moist mucous membranes, hearing normal, ears appear normal Cardiovascular: No JVD, No tachycardia, No edema Respiratory: no respiratory distress, no rales or rhonchi, reduced air movement Gastrointestinal: No tenderness, No ascites, No guarding Skin: warm, normal color, No erythema Musculoskeletal: full muscle strength, normal joint ROM, no joint effusions Neurologic: AAOx3 Psychiatric: interacting appropriately, not anxious, not encephalopathic ICD10 Worksheet Patient Problems: Problems Problem Status Onset Pleural effusion Acute
[2017-01-24] MEDS ORDERED: SODIUM FERRIC GLUCONAT/SUCROSE 125 MG in NS 100 ML IV ONE (16:26)
[2017-01-24] MEDS: KETOROLAC 15 MG/1 ML SDV IVP SCH ×2 (17:16→23:17)
--- NOTE | 2017-01-24 17:20 | PCMIDPN ---
Assessment/Plan: Assessment/Plan: * Right-sided empyema due to Streptococcus pneumoniae status post chest tube drainage and secondary drain placement by interventional Radiology today: Overall patient is feeling improved. Residual loculated fluid addressed by percutaneous drainage today with Gram stain showing no organisms. Pleural fluid culture showing growth of Streptococcus pneumoniae. Plan to continue ceftriaxone therapy currently. Consideration could be given to oral moxifloxacin as definitive therapy as this would preclude need for IV antibiotics post hospital discharge (would favor moxifloxacin as levofloxacin SYD is 2). 01/24/17 17:17 01/24/17 17:19 Subjective: Patient status post percutaneous drainage of residual fluid collection. No nausea, vomiting or diarrhea. Objective: Vital Signs Temp Pulse Resp BP Pulse Ox 36.6 C 87 18 146/84 H 92 01/24/17 16:00 01/24/17 16:00 01/24/17 16:00 01/24/17 16:00 01/24/17 16:00 Microbiology 01/24/17 12:50 Gram Stain - Final Pleural Fluid - Aspirate Laboratory Results 01/22/17 04:00 01/23/17 04:15 01/23/17 01/24/17 01/25/17 05:59 05:59 05:59 Intake Total 3653 1150 Output Total 1989 Balance 4 -2049 240 Ceftriaxone # 4 Blood cultures x2 no growth Pleural fluid cultures with growth of Streptococcus pneumoniae - Physical Exam General Appearance: alert, no apparent distress EENT: pharynx normal, No scleral icterus, No conjunctival petechiae Respiratory: coarse breath sounds (Right base) Cardiac/Chest: regular rate, rhythm, systolic murmur (2/6 left upper sternal border) Abdomen: non-tender, No distended Skin: No embolic lesions ICD10 Worksheet Patient Problems: Problems Problem Status Onset Pleural effusion Acute
[2017-01-24] MEDS: ACETAMINOPHEN 325 MG TAB PO PRN (23:24)
[2017-01-25] MEDS: KETOROLAC 15 MG/1 ML SDV IVP SCH ×3 (05:12→17:44)
[2017-01-25] MEDS: IPRATROPIUM/ALBUTEROL 3 ML DEYVIAL IH SCH ×3 (06:00→17:50)
--- NOTE | 2017-01-25 09:39 | PCMIDPN ---
Assessment/Plan: 1. Right-sided empyema secondary to pneumococcus: Now has both a chest tube and pigtail catheter in place. Agree that she can be changed to moxifloxacin upon discharge, but not yet. HIV testing negative. Counseled the patient to start using her incentive spirometer at least twice per hour. Subjective: Says she feels much better overall. Status post placement of pigtail catheter yesterday; 210 cc of fluid removed. No diarrhea. Objective: Ceftriaxone 1 g IV daily day 5 Afebrile Vital Signs Temp Pulse Resp BP Pulse Ox 36.3 C 76 16 140/93 H 94 01/25/17 07:23 01/25/17 07:23 01/25/17 07:23 01/25/17 07:23 01/25/17 07:23 Microbiology 01/24/17 12:50 Gram Stain - Final Pleural Fluid - Aspirate Laboratory Results 01/22/17 04:00 01/23/17 04:15 01/24/17 01/25/17 01/26/17 05:59 05:59 05:59 Intake Total 2500 Output Total 20490 Balance -2049 180 Fluid removed yesterday: 4+ PMNs - Physical Exam General Appearance: alert, no apparent distress EENT: pharynx normal, No scleral icterus Respiratory: other (Chest tube and pigtail catheter right side. Decreased breath sounds right base to mid lung field. Left lung fairly clear.) Cardiac/Chest: regular rate, rhythm Abdomen: non-tender, soft Skin: No rash ICD10 Worksheet Patient Problems: Problems Problem Status Onset Pleural effusion Acute
[2017-01-25] MEDS: cefTRIAXone 2 GM in D5W 50 ML IV SCH (10:02)
[2017-01-25] MEDS: SENNOSIDES/DOCUSATE SODIUM TAB PO SCH ×2 (10:03→22:53)
[2017-01-25] MEDS: POLYETHYLENE GLYCOL 3350 17 GM PKT PO SCH (10:03)
--- NOTE | 2017-01-25 16:04 | HOSPPROG ---
Hospitalist Progress Note Assessment/Plan: Patient is a 41 y/o female who presented to the ER with right-sided chest pain and back pain. She had been feeling poorly, flu like symptoms. Never quite improved but went to [place] and developed severe right sided chest pain. #.Right-sided empyema secondary to pneumococcus chest tube and pigtail catheter in place moxifloxacin upon discharge, but not yet. ceftriaxone (started 01/22) -s/p CT placement w Dr Gloria -blood cx NGTD -PICC #headache w associated nausea -resolved #. Leukocytosis -wbc much improved #. anemia/iron deficiency -heme stools -need oral iron, dose of IV given -patient has heavy menstrual cycles -follow -likely due to acute illness #. tachycardia -resolved #. renal insufficiency -resolved #. asthma -resume inhaler and add neb treatments -stable #.dispo: pending await ID approval Subjective: feeling better today. Less pain today. Able to take a deeper breath today. Objective: Vital Signs Temp Pulse Resp BP Pulse Ox 37.6 C 99 14 127/76 H 95 01/25/17 15:46 01/25/17 15:46 01/25/17 15:46 01/25/17 15:46 01/25/17 15:46 Microbiology 01/24/17 12:50 Gram Stain - Final Pleural Fluid - Aspirate Laboratory Results 01/22/17 04:00 01/23/17 04:15 01/24/17 01/25/17 01/26/17 05:59 05:59 05:59 Intake Total 2500 Output Total 20490 Balance -2049 180 PT 15.8 SEC (12.0-15.0) H 01/19/17 21:30 INR 1.26 (0.83-1.16) H 01/19/17 21:30 - Physical Exam Constitutional: no apparent distress, appears nourished Eyes: PERRL, anicteric sclera Ears, Nose, Mouth, Throat: moist mucous membranes, hearing normal Cardiovascular: No JVD, No edema Respiratory: no respiratory distress, reduced air movement Gastrointestinal: No tenderness, No ascites Skin: warm, normal color Musculoskeletal: no joint effusions, generalized weakness Neurologic: AAOx3 Psychiatric: interacting appropriately, not anxious, not encephalopathic ICD10 Worksheet Patient Problems: Problems Problem Status Onset Pleural effusion Acute
[2017-01-26] MEDS: KETOROLAC 15 MG/1 ML SDV IVP SCH ×4 (00:04→17:12)
[2017-01-26] MEDS: oxyCODONE IR 5 MG TAB PO PRN ×2 (03:32→16:22)
[2017-01-26] MEDS: IPRATROPIUM/ALBUTEROL 3 ML DEYVIAL IH SCH ×5 (06:02→20:15)
[2017-01-26] MEDS ORDERED: SODIUM FERRIC GLUCONAT/SUCROSE 125 MG in NS 100 ML IV ONE (08:19)
[2017-01-26] MEDS: SENNOSIDES/DOCUSATE SODIUM TAB PO SCH ×2 (08:25→20:42)
[2017-01-26] MEDS: cefTRIAXone 2 GM in D5W 50 ML IV SCH (08:25)
[2017-01-26 08:56] LABS: HEMATOCRIT 26.9 % (38.0-47.0); HEMOGLOBIN 8.4 g/dL (12.6-16.3); MEAN CELL HEMOGLOBIN 25.3 pg (27.9-34.1); MEAN CELL HEMOGLOBIN CONCENTR. 31.2 g/dL (32.4-36.7); RED BLOOD CELL COUNT 3.32 10^6/uL (4.18-5.33); RED CELL DISTRIBUTION WIDTH 15.6 % (11.5-15.2)
[2017-01-26] MEDS: POLYETHYLENE GLYCOL 3350 17 GM PKT PO SCH (09:50)
--- NOTE | 2017-01-26 11:00 | HOSPPROG ---
Hospitalist Progress Note Assessment/Plan: Patient is a 41 y/o female who presented to the ER with right-sided chest pain and back pain. She had been feeling poorly, flu like symptoms. Never quite improved but went to [place] and developed severe right sided chest pain. #.Right-sided empyema secondary to pneumococcus chest tube and pigtail catheter in place moxifloxacin upon discharge, but not yet. ceftriaxone (started 01/22) -s/p CT placement -blood cx NGTD -PICC #headache w associated nausea -resolved #. Leukocytosis -wbc much improved #. anemia/iron deficiency -heme stools positive -start oral iron, dose of IV given x2 -patient has heavy menstrual cycles -D/W Dr Govea, needs colonoscopy when better -labs today, stable #. tachycardia -resolved #. renal insufficiency -resolved #. asthma -resume inhaler and add neb treatments -stable #.dispo: pending await ID approval Cont IV abx and supportive care Plan for GI evaluation when able Subjective: Feeling ok today. No pain or specific issues. Reviewed anemia. Objective: Vital Signs Temp Pulse Resp BP Pulse Ox 36.8 C 75 12 125/83 H 93 01/26/17 07:22 01/26/17 10:25 01/26/17 10:25 01/26/17 07:22 01/26/17 10:25 Microbiology 01/24/17 12:50 Gram Stain - Final Pleural Fluid - Aspirate Laboratory Results 01/26/17 08:30 01/23/17 04:15 01/25/17 01/26/17 01/27/17 05:59 05:59 06:59 Intake Total 2500 500 Output Total 2320 65 Balance 180 435 PT 15.8 SEC (12.0-15.0) H 01/19/17 21:30 INR 1.26 (0.83-1.16) H 01/19/17 21:30 - Physical Exam Constitutional: no apparent distress, appears nourished, not in pain Eyes: PERRL, anicteric sclera, EOMI Ears, Nose, Mouth, Throat: moist mucous membranes, hearing normal, ears appear normal Cardiovascular: No JVD, No tachycardia, No bradycardia Respiratory: no respiratory distress, no rales or rhonchi, reduced air movement Gastrointestinal: normoactive bowel sounds, No tenderness, No ascites Skin: warm, normal color, No erythema Musculoskeletal: full muscle strength, normal joint ROM, no joint effusions Neurologic: AAOx3 Psychiatric: interacting appropriately, not anxious, not encephalopathic ICD10 Worksheet Patient Problems: Problems Problem Status Onset Pleural effusion Acute
[2017-01-26] MEDS: FERROUS SULFATE 140 MG TAB.ER PO SCH (11:47)
--- NOTE | 2017-01-26 12:52 | SOAPPROG ---
SOAP Progress Note Assessment/Plan: Assessment:Plan: full consult to follow 41 y/o female with allergies nad reactive airway dz admitted with empyema and noted to be iron def does have heavy menses, but is noted to be heme positive will need EGD and colon - likely as outpt in few weeks when recovered from this event David Govea M.D. [phone] 01/26/17 12:50 Objective: Vital Signs Temp Pulse Resp BP Pulse Ox 36.9 C 83 16 130/83 H 94 01/26/17 12:00 01/26/17 12:00 01/26/17 12:00 01/26/17 12:00 01/26/17 12:00 Microbiology 01/24/17 12:50 Gram Stain - Final Pleural Fluid - Aspirate Laboratory Results 01/26/17 08:30 01/23/17 04:15 01/25/17 01/26/17 01/27/17 05:59 05:59 06:59 Intake Total 2500 500 Output Total 2320 65 Balance 180 435 PT 15.8 SEC (12.0-15.0) H 01/19/17 21:30 INR 1.26 (0.83-1.16) H 01/19/17 21:30 ICD10 Worksheet Patient Problems: Problems Problem Status Onset Pleural effusion Acute
--- NOTE | 2017-01-26 14:39 | SOAPPROG ---
SOAP Progress Note Assessment/Plan: Assessment: Plan: Subjective: vss, af, wbc still 11.5 drainage out large chest tube getting quite clear in color. recent ir 12 f drain purulent, although gram stain showed no organisms. will try some tpa in smaller chest tube to see if it will help to clear debris. ct chest saturday. Objective: Vital Signs Temp Pulse Resp BP Pulse Ox 36.9 C 83 16 130/83 H 94 01/26/17 12:00 01/26/17 12:00 01/26/17 12:00 01/26/17 12:00 01/26/17 12:00 Microbiology 01/24/17 12:50 Gram Stain - Final Pleural Fluid - Aspirate Laboratory Results 01/26/17 08:30 01/23/17 04:15 01/25/17 01/26/17 01/27/17 05:59 05:59 06:59 Intake Total 2500 500 Output Total 2320 65 Balance 180 435 PT 15.8 SEC (12.0-15.0) H 01/19/17 21:30 INR 1.26 (0.83-1.16) H 01/19/17 21:30 ICD10 Worksheet Patient Problems: Problems Problem Status Onset Pleural effusion Acute
[2017-01-26] MEDS ORDERED: NS MISC ONE (14:45)
[2017-01-26] MEDS ORDERED: ALTEPLASE MISC ONE (14:45)
--- NOTE | 2017-01-26 15:11 | PCMIDPN ---
Assessment/Plan: Assessment: Right-sided complicated parapneumonic effusion with streptococcus pneumoniae growing from the removed fluid. This is by history a likely complication of influenza. Patient is currently covered with ceftriaxone and tolerating well. Pigtail drain inserted yesterday and 200 cc of purulent fluid removed. Patient feels much better afterwards. Plan: 1. Continue ceftriaxone 1 g Q 24 hours. 2. Plan changed to moxifloxacin orally to complete a 4 week course of treatment. 01/26/17 15:08 01/26/17 15:09 Subjective: Patient is sitting in her hospital chair and resting. Relates that after she had her pigtail catheter placed yesterday she could take a much deeper breath with less discomfort. No fevers or chills. Objective: Ceftriaxone # 6 Vital Signs Temp Pulse Resp BP Pulse Ox 36.9 C 83 16 130/83 H 94 01/26/17 12:00 01/26/17 12:00 01/26/17 12:00 01/26/17 12:00 01/26/17 12:00 Microbiology 01/24/17 12:50 Gram Stain - Final Pleural Fluid - Aspirate Laboratory Results 01/26/17 08:30 01/23/17 04:15 01/25/17 01/26/17 01/27/17 05:59 05:59 06:59 Intake Total 2500 500 Output Total 2320 65 Balance 180 435 - Physical Exam General Appearance: WD/WN, alert, no apparent distress, non-toxic Respiratory: lungs clear, No normal breath sounds Skin: normal color, warm/dry, No rash Neuro/Psych: alert, normal mood/affect ICD10 Worksheet Patient Problems: Problems Problem Status Onset Pleural effusion Acute
--- NOTE | 2017-01-26 16:10 | GCON ---
[f rep st] CONSULTATION Requesting Provider: Jaymie Evangelista. INDICATION FOR CONSULTATION: Iron deficiency anemia. HPI: I have been asked by Jaymie Evangelista to see Diana in consultation for iron deficiency anemia. The patient is a pleasant 41-year-old female with significant past medical history for allergies and reactive airways disease. She does take inhalers on demand as well as [id number] allergy medications. She had the flu about 2 weeks ago and had high fevers, cough and muscle aches. She was traveling in [place] when all these symptoms did resolve earlier this week. Then she had right-sided chest and back pain that was quite severe. She presented to [facility] with continued symptoms and had a CT scan that showed probable empyema and she has been admitted for a chest tube. While she has been in the hospital, she has had laboratory studies that show iron deficiency anemia. She does have heavy periods and I believe that this may be a source; however, she was noted to be heme-positive on stool occult blood. She denies any GI symptoms including nausea, vomiting, dysphagia , odynophagia, early satiety, diarrhea, constipation or overt blood loss other than her menses. She has no epistaxis, hematemesis, melena, hematochezia or hematuria. There is no family history of any celiac sprue, colon cancer or colon polyps to her knowledge. She is admitted for her empyema and I am called to help and evaluate her iron deficiency. PAST MEDICAL/SURGICAL HISTORY: Asthma and chest tube. MEDICATIONS: At home include albuterol, Vashti and Aleve. In hospital she is written for Tylenol p.r.n., Proventil inhaler p.r.n., albuterol 3 mL q.6, bisacodyl p.r.n., ceftriaxone 2 g IV daily, iron infusion, Toradol 50 mg IV q.6 , lactulose p.r.n., milk of magnesia p.r.n., morphine p.r.n., Zofran p.r.n., oxycodone p.r.n., MiraLAX 1 dose daily, Phenergan p.r.n., Senokot 1 tab p.o. twice daily. ALLERGIES: none known to medications; bees, cantaloupe, other food allergies SOCIAL HISTORY: He does not smoke. She drinks socially. FAMILY HISTORY: No colon cancer or colon polyps. REVIEW OF SYSTEMS: A comprehensive review of systems has been performed and is negative other than noted in the HPI. Specifically, no GI complaints other than noted in the HPI. PHYSICAL EXAM: GENERAL: Well developed, well nourished, no acute distress. Sitting in her bed with a chest tube in place. VITAL SIGNS: Blood pressure 130 /83, heart rate 83, respirations 16, 94% on room air, temperature 36.9. HEENT: Eyes anicteric. NGOC. EOMI. Mouth no lesions. Moist mucous membranes. NECK: Supple. No JVD. BACK: No spine tenderness. LUNGS: No CVA tenderness. Not deep respiratory effort secondary to pain from chest tube. ABDOMEN: Bowel sounds normal. Soft, nontender. No hepatosplenomegaly. EXTREMITIES: No cyanosis, clubbing, or edema. NEUROLOGIC: Cranial nerves intact. Nonfocal. SKIN: No stigmata of advanced liver disease. No rashes. LABORATORY DATA: From today, January 26: WBC 11.54, hemoglobin 8.4, hematocrit 26.9, platelet count 728. Protime from January 19 15.8, INR 1.26. Laboratory studies from January 23: Sodium 138, potassium 4.8, chloride 106, bicarb 26, BUN 9, creatinine 0.9. Bilirubin 0.3, AST 33, ALT 34, alkaline phosphatase 79, albumin 2.0, total protein 5.9. Iron saturation is 7% with an iron of less than 10 and a TIBC of 143. Stool occult blood was positive on January 26. January 20 HIV antibodies 1 and 2 negative. January 20 influenza type A and B negative. ASSESSMENT: 1. Iron-deficiency anemia possibly related to her heavy menses. 2. Right-sided empyema. Parapneumonic effusion with strep pneumonia growing. 3. Asthma. 4. Allergies to food and airborne allergens. RECOMMENDATIONS: 1. Patient will need EGD and colonoscopy, but I believe this can be postponed until she recovers from this acute event. If there is any obvious significant GI bleed, then I will alter the recommendations. As long as she remains stable , I think EGD and colonoscopy as an outpatient in a number of weeks is the most appropriate course of action. I do agree with IV iron infusion and she can be on iron supplementation as well. At present, I will not recommend any alteration in medications. 2. Treatment of her empyema as per ID and surgery. 3. Further recommendations following above and clinical course. Thank you for allowing us to participate in this patient's healthcare. Do not hesitate to contact me with any questions. /[id number]/MODL MTDD
[2017-01-27] MEDS: KETOROLAC 15 MG/1 ML SDV IVP SCH ×5 (00:13→23:15)
[2017-01-27] MEDS: IPRATROPIUM/ALBUTEROL 3 ML DEYVIAL IH SCH ×4 (05:24→20:33)
[2017-01-27] MEDS: POLYETHYLENE GLYCOL 3350 17 GM PKT PO SCH (08:54)
[2017-01-27] MEDS: FERROUS SULFATE 140 MG TAB.ER PO SCH (08:54)
[2017-01-27] MEDS: cefTRIAXone 2 GM in D5W 50 ML IV SCH (08:54)
[2017-01-27] MEDS: SENNOSIDES/DOCUSATE SODIUM TAB PO SCH ×2 (08:54→21:31)
--- NOTE | 2017-01-27 11:40 | HOSPPROG ---
Hospitalist Progress Note Assessment/Plan: Patient is a 41 y/o female who presented to the ER with right-sided chest pain and back pain. She had been feeling poorly, flu like symptoms. Never quite improved but went to [place] and developed severe right sided chest pain. #.Right-sided empyema secondary to pneumococcus likely secondary to influenza chest tube and pigtail catheter in place received TPA yesterday moxifloxacin upon discharge, but not yet. ceftriaxone (started 01/22) -s/p CT placement and pigtail -blood cx NGTD -PICC #headache w associated nausea -resolved #. Leukocytosis -wbc much improved #. anemia/iron deficiency -heme stools positive -start oral iron, dose of IV given x2 -patient has heavy menstrual cycles -D/W Dr Govea, needs colonoscopy when better -labs stable #. tachycardia -resolved #. renal insufficiency -resolved #. asthma -resume inhaler and add neb treatments -stable #.dispo: pending await ID and surgery approval Cont IV abx and supportive care Plan for GI evaluation when able Subjective: Feeling better today. Can take a deeper breath. No pain currently. Objective: Vital Signs Temp Pulse Resp BP Pulse Ox 36.8 C 68 16 133/77 H 94 01/27/17 10:59 01/27/17 10:59 01/27/17 10:59 01/27/17 10:59 01/27/17 10:59 Microbiology 01/24/17 12:50 Gram Stain - Final Pleural Fluid - Aspirate Body Fluid Culture - Final Laboratory Results 01/26/17 08:30 01/23/17 04:15 01/26/17 01/27/17 01/28/17 04:59 05:59 05:59 Intake Total 500 Output Total 100 Balance 400 PT 15.8 SEC (12.0-15.0) H 01/19/17 21:30 INR 1.26 (0.83-1.16) H 01/19/17 21:30 - Physical Exam Constitutional: no apparent distress, not in pain Eyes: PERRL, anicteric sclera Ears, Nose, Mouth, Throat: moist mucous membranes, hearing normal Cardiovascular: No JVD, No edema Respiratory: no respiratory distress, reduced air movement Gastrointestinal: No tenderness, No ascites Skin: warm, normal color Musculoskeletal: full muscle strength, no joint effusions Neurologic: AAOx3 Psychiatric: interacting appropriately, not anxious, not encephalopathic ICD10 Worksheet Patient Problems: Problems Problem Status Onset Pleural effusion Acute
--- NOTE | 2017-01-27 11:55 | SOAPPROG ---
SOAP Progress Note Assessment/Plan: Assessment:Plan: full consult to follow 41 y/o female with allergies nad reactive airway dz admitted with empyema and noted to be iron def does have heavy menses, but is noted to be heme positive will need EGD and colon - likely as outpt in few weeks when recovered from this event David Govea M.D. [phone] 01/26/17 12:50 01/27/17 11:53 iron def anemia possibly from menses needs EGD and colon -- not urgent, will let her recover form empyema and schedule as outpt in approx 4 weeks will sign off thank you Subjective: CC- iron def anemia, empyema feeling better with chest tune and abx had sone IV iron yesterday, no overt bleeding Objective: Vital Signs Temp Pulse Resp BP Pulse Ox 36.8 C 88 18 133/77 H 94 01/27/17 10:59 01/27/17 11:40 01/27/17 11:40 01/27/17 10:59 01/27/17 11:40 Microbiology 01/24/17 12:50 Gram Stain - Final Pleural Fluid - Aspirate Body Fluid Culture - Final Laboratory Results 01/26/17 08:30 01/23/17 04:15 01/26/17 01/27/17 01/28/17 04:59 05:59 05:59 Intake Total 500 Output Total 100 Balance 400 PT 15.8 SEC (12.0-15.0) H 01/19/17 21:30 INR 1.26 (0.83-1.16) H 01/19/17 21:30 A+Ox3 S1S2 +BS, soft NT ICD10 Worksheet Patient Problems: Problems Problem Status Onset Pleural effusion Acute
[2017-01-27] MEDS: oxyCODONE IR 5 MG TAB PO PRN (13:47)
[2017-01-28] MEDS: IPRATROPIUM/ALBUTEROL 3 ML DEYVIAL IH SCH ×4 (05:18→22:10)
[2017-01-28] MEDS: KETOROLAC 15 MG/1 ML SDV IVP SCH ×4 (05:33→23:50)
--- NOTE | 2017-01-28 08:35 | HOSPPROG ---
Hospitalist Progress Note Assessment/Plan: Patient is a 41 y/o female who presented to the ER with right-sided chest pain and back pain. She had been feeling poorly, flu like symptoms. Never quite improved but went to [place] and developed severe right sided chest pain. #.Right-sided empyema secondary to pneumococcus likely secondary to influenza chest tube and pigtail catheter in place received TPA moxifloxacin upon discharge ceftriaxone (started 01/22) reviewed her care with Dr ordoñez/ CT of chest ordered for today/ he will further evaluate/ possible removal of CT later today/ update patient on this #headache w associated nausea -resolved #. Leukocytosis -wbc much improved #. anemia/iron deficiency -heme stools positive -start oral iron, dose of IV given x2 -patient has heavy menstrual cycles -f/u with Dr Govea once she improves from the above #. tachycardia -resolved #. renal insufficiency -resolved #. asthma -resume inhaler and add neb treatments -stable #.dispo: pending/ possibly tomorrow Subjective: Diana is feeling better/ uncomfortable at chest tube insertion site. Objective: Vital Signs Temp Pulse Resp BP Pulse Ox 36.9 C 91 16 151/84 H 94 01/28/17 07:25 01/28/17 07:25 01/28/17 07:25 01/28/17 07:25 01/28/17 07:25 Microbiology 01/24/17 12:50 Gram Stain - Final Pleural Fluid - Aspirate Body Fluid Culture - Final Laboratory Results 01/26/17 08:30 01/23/17 04:15 01/27/17 01/28/17 01/29/17 05:59 05:59 05:59 Intake Total 550 Output Total 200 Balance 350 PT 15.8 SEC (12.0-15.0) H 01/19/17 21:30 INR 1.26 (0.83-1.16) H 01/19/17 21:30 - Physical Exam Constitutional: no apparent distress, uncomfortable Eyes: PERRL Ears, Nose, Mouth, Throat: hearing normal Cardiovascular: regular rate and rhythym Respiratory: no respiratory distress, reduced air movement (right base and middle lobe) Gastrointestinal: normoactive bowel sounds Skin: warm Musculoskeletal: no muscle tenderness Neurologic: AAOx3 Psychiatric: interacting appropriately, not anxious ICD10 Worksheet Patient Problems: Problems Problem Status Onset Pleural effusion Acute
[2017-01-28] MEDS: ENOXAPARIN 40 MG/0.4 ML SYR SC SCH (09:10)
[2017-01-28] MEDS: FERROUS SULFATE 140 MG TAB.ER PO SCH (09:10)
[2017-01-28] MEDS: cefTRIAXone 2 GM in D5W 50 ML IV SCH (09:10)
[2017-01-28] MEDS: POLYETHYLENE GLYCOL 3350 17 GM PKT PO SCH (09:22)
[2017-01-28] MEDS: SENNOSIDES/DOCUSATE SODIUM TAB PO SCH ×2 (09:22→20:33)
--- NOTE | 2017-01-28 14:05 | PCMIDPN ---
Assessment/Plan: Assessment/Plan: * Right-sided empyema due to Streptococcus pneumoniae status post chest tube drainage and secondary drain placement by interventional Radiology today: Secondary drain cultures no growth. Overall, with significant clinical improvement. Continue ceftriaxone while inpatient. Plan to complete therapy with oral moxifloxacin 400 mg daily once ready for discharge to complete 4 weeks of therapy post interventional drainage (02/21/2017). 01/28/17 14:02 01/28/17 14:03 Subjective: Patient feels better. No nausea, vomiting or diarrhea. No pulmonary symptoms. Objective: Vital Signs Temp Pulse Resp BP Pulse Ox 36.7 C 75 14 135/81 H 94 01/28/17 11:13 01/28/17 11:20 01/28/17 11:20 01/28/17 11:13 01/28/17 11:20 Microbiology 01/24/17 12:50 Gram Stain - Final Pleural Fluid - Aspirate Body Fluid Culture - Final Laboratory Results 01/26/17 08:30 01/23/17 04:15 01/27/17 01/28/17 01/29/17 05:59 05:59 05:59 Intake Total 550 Output Total 200 Balance 350 Ceftriaxone # 8 Pleural cultures from 01/24/2017 no growth - Physical Exam General Appearance: alert, no apparent distress EENT: pharynx normal, No scleral icterus Respiratory: other (Decreased breath sounds right lower lung field; DAVID drainage slightly cloudy serosanguineous fluid) Cardiac/Chest: regular rate, rhythm Extremities: No pedal edema Abdomen: non-tender, No distended ICD10 Worksheet Patient Problems: Problems Problem Status Onset Pleural effusion Acute
--- NOTE | 2017-01-28 19:00 | SOAPPROG ---
SOAP Progress Note Assessment/Plan: Assessment: Plan: Subjective: vss, af ct today shows persistant small right pneumo. 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 can't remove large chest tube while pt has fistula. could try reinstituting suction, although this may not improve the situation. could remove small tube, put heimlich valve and a glove on ct to try to send pt home. then wait for fistula to close. will try suction overnight. Objective: Vital Signs Temp Pulse Resp BP Pulse Ox 36.8 C 82 14 138/88 H 95 01/28/17 15:44 01/28/17 16:35 01/28/17 16:35 01/28/17 15:44 01/28/17 16:35 Laboratory Results 01/26/17 08:30 01/23/17 04:15 01/27/17 01/28/17 01/29/17 05:59 05:59 05:59 Intake Total 550 Output Total 200 10 Balance 350 -10 PT 15.8 SEC (12.0-15.0) H 01/19/17 21:30 INR 1.26 (0.83-1.16) H 01/19/17 21:30 ICD10 Worksheet Patient Problems: Problems Problem Status Onset Pleural effusion Acute
[2017-01-28] MEDS: oxyCODONE IR 5 MG TAB PO PRN (23:50)
[2017-01-29] MEDS: IPRATROPIUM/ALBUTEROL 3 ML DEYVIAL IH SCH ×3 (05:38→17:18)
[2017-01-29] MEDS: KETOROLAC 15 MG/1 ML SDV IVP SCH ×2 (05:59→12:37)
[2017-01-29] MEDS: cefTRIAXone 2 GM in D5W 50 ML IV SCH (09:09)
[2017-01-29] MEDS: ENOXAPARIN 40 MG/0.4 ML SYR SC SCH (09:09)
[2017-01-29] MEDS: FERROUS SULFATE 140 MG TAB.ER PO SCH (09:09)
[2017-01-29] MEDS: POLYETHYLENE GLYCOL 3350 17 GM PKT PO SCH (09:10)
[2017-01-29] MEDS: SENNOSIDES/DOCUSATE SODIUM TAB PO SCH ×2 (09:10→21:00)
--- NOTE | 2017-01-29 16:37 | HOSPPROG ---
Hospitalist Progress Note Assessment/Plan: Patient is a 41 y/o female who presented to the ER with right-sided chest pain and back pain. She had been feeling poorly, flu like symptoms. Never quite improved but went to [place] and developed severe right sided chest pain. #.Right-sided empyema secondary to pneumococcus likely secondary to influenza chest tube and pigtail catheter in place received TPA moxifloxacin upon discharge ceftriaxone (started 01/22) CT of chest shows small pneumo/was placed on suction/ chest xray stable/ will await further input from surgery #headache w associated nausea -resolved #. Leukocytosis -wbc much improved #. anemia/iron deficiency -heme stools positive -start oral iron, dose of IV given x2 -patient has heavy menstrual cycles -f/u with Dr Govea once she improves from the above #. tachycardia -resolved #. renal insufficiency -resolved #. asthma -resume inhaler and add neb treatments -stable #.dispo: pending Subjective: Diana has no complaints/ her goal is to be healthy enough to go home and prefers CT out. Objective: Vital Signs Temp Pulse Resp BP Pulse Ox 37.1 C 92 16 124/80 H 92 01/29/17 15:14 01/29/17 15:14 01/29/17 15:14 01/29/17 15:14 01/29/17 15:14 Laboratory Results 01/26/17 08:30 01/23/17 04:15 01/28/17 01/29/17 01/30/17 05:59 05:59 05:59 Intake Total 550 100 Output Total 200 170 Balance 350 -70 PT 15.8 SEC (12.0-15.0) H 01/19/17 21:30 INR 1.26 (0.83-1.16) H 01/19/17 21:30 - Physical Exam Constitutional: no apparent distress, appears nourished, not in pain Eyes: PERRL Ears, Nose, Mouth, Throat: hearing normal Cardiovascular: no murmur, rub, or gallop Respiratory: no respiratory distress, reduced air movement (right base and middle lobe, but some air ausculated today (better today than yesterday)) Gastrointestinal: normoactive bowel sounds Skin: warm Musculoskeletal: full muscle strength, no muscle tenderness Neurologic: AAOx3 ICD10 Worksheet Patient Problems: Problems Problem Status Onset Pleural effusion Acute
--- NOTE | 2017-01-29 17:20 | SOAPPROG ---
SOAP Progress Note Assessment/Plan: Assessment: Plan: Subjective: vss, af lungs with diminshed breath souinds r no air leak right now on suction- it seemed lle there was an air leak last pm. will check tomorrow- if continues without lek, will try to get tube out and dc homeon po antibioitics. Objective: Vital Signs Temp Pulse Resp BP Pulse Ox 37.1 C 92 16 124/80 H 92 01/29/17 15:14 01/29/17 15:14 01/29/17 15:14 01/29/17 15:14 01/29/17 15:14 Laboratory Results 01/26/17 08:30 01/23/17 04:15 01/28/17 01/29/17 01/30/17 05:59 05:59 05:59 Intake Total 550 100 Output Total 200 170 Balance 350 -70 PT 15.8 SEC (12.0-15.0) H 01/19/17 21:30 INR 1.26 (0.83-1.16) H 01/19/17 21:30 ICD10 Worksheet Patient Problems: Problems Problem Status Onset Pleural effusion Acute
[2017-01-29] MEDS: oxyCODONE IR 5 MG TAB PO PRN ×2 (19:58→22:16)
[2017-01-29] MEDS: ACETAMINOPHEN 325 MG TAB PO PRN (19:58)
[2017-01-30] MEDS: IPRATROPIUM/ALBUTEROL 3 ML DEYVIAL IH SCH ×4 (06:13→17:39)
[2017-01-30] MEDS: oxyCODONE IR 5 MG TAB PO PRN ×2 (09:10→18:14)
[2017-01-30] MEDS: FERROUS SULFATE 140 MG TAB.ER PO SCH (09:11)
[2017-01-30] MEDS: cefTRIAXone 2 GM in D5W 50 ML IV SCH (09:11)
[2017-01-30] MEDS: ENOXAPARIN 40 MG/0.4 ML SYR SC SCH (09:11)
[2017-01-30] MEDS: POLYETHYLENE GLYCOL 3350 17 GM PKT PO SCH (09:12)
[2017-01-30] MEDS: SENNOSIDES/DOCUSATE SODIUM TAB PO SCH ×2 (09:12→19:51)
--- NOTE | 2017-01-30 12:50 | HOSPPROG ---
Hospitalist Progress Note Assessment/Plan: Patient is a 41 y/o female who presented to the ER with right-sided chest pain and back pain. She had been feeling poorly, flu like symptoms. Never quite improved but went to [place] and developed severe right sided chest pain. #.Right-sided empyema secondary to pneumococcus likely secondary to influenza chest tube and pigtail catheter in place received TPA moxifloxacin upon discharge ceftriaxone (started 01/22) CT of chest shows small pneumo/was placed on suction/ chest xray stable/ will await further input from surgery pleuro vac replaced today/ it had spilled over and was diff to eval for air leak / no air leak noted #headache w associated nausea -resolved #. Leukocytosis -wbc much improved #. anemia/iron deficiency -heme stools positive -start oral iron, dose of IV given x2 -patient has heavy menstrual cycles -f/u with Dr Govea once she improves from the above #. tachycardia -resolved #. renal insufficiency -resolved #. asthma -resume inhaler and add neb treatments -stable #.dispo: pending Subjective: Diana continues to feel better. Objective: Vital Signs Temp Pulse Resp BP Pulse Ox 37.3 C 106 H 20 133/80 H 91 L 01/30/17 11:07 01/30/17 11:07 01/30/17 11:07 01/30/17 11:07 01/30/17 11:07 Laboratory Results 01/26/17 08:30 01/23/17 04:15 01/29/17 01/30/17 01/31/17 05:59 05:59 05:59 Intake Total 100 200 Output Total 170 298 Balance -70 -98 PT 15.8 SEC (12.0-15.0) H 01/19/17 21:30 INR 1.26 (0.83-1.16) H 01/19/17 21:30 - Physical Exam Constitutional: no apparent distress, appears nourished Eyes: PERRL Ears, Nose, Mouth, Throat: hearing normal Cardiovascular: regular rate and rhythym Respiratory: no respiratory distress, reduced air movement (right base and middle lobe/ can hear a small amout of air exchange with deep breath) Gastrointestinal: normoactive bowel sounds Skin: warm Musculoskeletal: full muscle strength Neurologic: AAOx3 Psychiatric: interacting appropriately, not anxious ICD10 Worksheet Patient Problems: Problems Problem Status Onset Pleural effusion Acute
[2017-01-31] MEDS: IPRATROPIUM/ALBUTEROL 3 ML DEYVIAL IH SCH ×4 (06:12→16:38)
--- NOTE | 2017-01-31 08:20 | SOAPPROG ---
PATRICIA Progress Note Assessment/Plan: Assessment: Plan: Subjective: vss, af i still think there is a very small air leak when off suction, so will cut larger tube off, leave heimlich valve on tbe, and send home with large chest tube in plac. small catheter removed. today's chest tue shows cortez miniscule aair lateral to chest tube ,cnsistent with ct findings. ok to send home today. she will follow up with me sat 930 in my office. Objective: Vital Signs Temp Pulse Resp BP Pulse Ox 37.6 C 77 18 123/73 H 93 01/31/17 04:00 01/31/17 04:00 01/31/17 04:00 01/31/17 04:00 01/31/17 04:00 Laboratory Results 01/26/17 08:30 01/23/17 04:15 01/30/17 01/31/17 02/01/17 05:59 05:59 05:59 Intake Total 200 1000 Output Total 298 39 Balance -98 961 PT 15.8 SEC (12.0-15.0) H 01/19/17 21:30 INR 1.26 (0.83-1.16) H 01/19/17 21:30 ICD10 Worksheet Patient Problems: Problems Problem Status Onset Pleural effusion Acute
[2017-01-31 08:30] VITALS: BP 119/73; TEMP 98.4; O2SAT 95
[2017-01-31] MEDS: FERROUS SULFATE 140 MG TAB.ER PO SCH (08:35)
[2017-01-31] MEDS: ENOXAPARIN 40 MG/0.4 ML SYR SC SCH (08:36)
[2017-01-31] MEDS: oxyCODONE IR 5 MG TAB PO PRN (08:36)
[2017-01-31] MEDS: cefTRIAXone 2 GM in D5W 50 ML IV SCH (08:36)
[2017-01-31] MEDS: POLYETHYLENE GLYCOL 3350 17 GM PKT PO SCH (08:37)
[2017-01-31] MEDS: SENNOSIDES/DOCUSATE SODIUM TAB PO SCH (08:37)
[2017-01-31 11:33] VITALS: PULSE 70; RESP 16
--- NOTE | 2017-01-31 14:51 | PCMIDPN ---
Assessment/Plan: Assessment/Plan: * Right-sided empyema due to Streptococcus pneumoniae status post chest tube drainage and secondary drain placement by interventional Radiology today: Secondary drain cultures no growth. Continued clinical improvement. Plans for discharge home today with retained chest tube with Heimlich valve as outlined by Dr. Gloria. Will transition ceftriaxone to oral moxifloxacin for 3 weeks which represents 4 weeks post interventional radiology drain placement. Will use moxifloxacin over levofloxacin given levofloxacin SYD of 2. Side effects including risk of tendinopathy with quinolone use discussed with patient today. Will have follow-up with me in the office next week. 01/31/17 14:48 Subjective: Patient feels much better. No significant cough or shortness of breath. Objective: Vital Signs Temp Pulse Resp BP Pulse Ox 36.9 C 70 16 119/73 95 01/31/17 08:00 01/31/17 11:25 01/31/17 11:25 01/31/17 08:00 01/31/17 08:00 Laboratory Results 01/26/17 08:30 01/23/17 04:15 01/30/17 01/31/17 02/01/17 05:59 05:59 05:59 Intake Total 200 1000 Output Total 298 39 Balance -98 961 Ceftriaxone # 11 - Physical Exam General Appearance: alert, no apparent distress EENT: pharynx normal, No scleral icterus Respiratory: other (decreased breath sounds right base) Cardiac/Chest: regular rate, rhythm Abdomen: non-tender, No distended ICD10 Worksheet Patient Problems: Problems Problem Status Onset Pleural effusion Acute
--- NOTE | 2017-01-31 16:18 | GDS ---
[f rep st] DISCHARGE SUMMARY DISCHARGE DIAGNOSES: 1. Right-sided empyema due to Streptococcus pneumoniae. 2. Leukocytosis. 3. Multifactorial anemia. 4. Tachycardia. 5. Renal insufficiency. 6. Asthma. CONSULTATIONS: 1. Dr. Gloria. 2. Gastroenterology. 3. Infectious Disease. PROCEDURES DONE: Chest tube placement. HOSPITAL COURSE: The patient is a 41-year-old female who presented to the emergency room with compl aints of shortness of breath. She was evaluated and diagnosed with: 1. Right-sided empyema secondary to Pneumococcus. During this hospitalization, she had multiple ch est tubes placed as well as a pigtail. She was consulted on by Dr. Gloria of General Surgery as well as Infectious Disease. She was treated with IV antibiotic therapy and will transition to Avelo x at the time of disposition today. She has had a Heimlich valve placed and will continue this in [facility] outpatient setting. 2. Leukocytosis. This is secondary to the patient's acute infection and has improved. 3. Anemia. This is multifactorial as well as iron deficient. I have had a consultation from [facility] oenterology. The patient will follow up in the outpatient setting with a colonoscopy when her acute infectious process has resolved. 4. Tachycardia. This has resolved. DISPOSITION: The patient will be discharged home independently with oral antibiotics. She will fol low up with Dr. Gloria on 02/02/2017, as well as Dr. Rosas Fishman on 02/07/2017. Her [facility] physician is Dr. Ayla Edwards, and she will also arrange outpatient followup with her. I t was recommended that she have a colonoscopy in the near future. There are no pending studies. DISCHARGE MEDICATIONS: Please refer to EMR form. I have provided the patient a prescription for Av elox as well as oxycodone. I have not adjusted any of her other previously prescribed home medicati ons to the best of my knowledge. I spent greater than 35 minutes in the care, coordination, and management of this patient's disposit ion and discussion with Dr. Rosas Fishman. /[id number]/MODL
[2017-02-01] MEDS ORDERED: MOXIFLOXACIN 400 MG TAB PO SCH (09:00)
== END 2017-01-31 16:55 | disposition home or self-care (01) | DRG 178 ==
LOC: F3E 01-20 00:43 → OBSVTOIN 01-20 09:43
PROVIDERS: ADMIT Student in an Organized Health Care Education/Training Program; ATTEND Hospitalist
PROC: 0W9930Z Drainage of Right Pleural Cavity with Drainage Device, Percutaneous Approach (ICD-10-PCS; principal; 2017-01-20)
PROC: 02HV33Z Insertion of Infusion Device into Superior Vena Cava, Percutaneous Approach (ICD-10-PCS; 2017-01-21)
PROC: 0W9930Z Drainage of Right Pleural Cavity with Drainage Device, Percutaneous Approach (ICD-10-PCS; 2017-01-24)
DX: J86.0 Pyothorax with fistula (principal); J90 Pleural effusion, not elsewhere classified; B95.3 Streptococcus pneumoniae as the cause of diseases classified elsewhere; N28.9 Disorder of kidney and ureter, unspecified; J45.909 Unspecified asthma, uncomplicated; D50.9 Iron deficiency anemia, unspecified; R19.5 Other fecal abnormalities
CPT/HCPCS: C1751; G0378; J0696; J1650; J1885; J2250; J2310; J2405; J2543; J2916; J2997; J3010; Q9967

== ENCOUNTER → 2017-02-19 | Outpatient (CLI) | payer OTHER | LOC: FIMAGING 13:34 | PROVIDERS: ATTEND Internal Medicine Infectious Disease | DX: R91.8 Other nonspecific abnormal finding of lung field (principal) ==

== ENCOUNTER → 2018-02-19 | Outpatient (CLI) | payer OTHER | LOC: FIMAGING 15:30 | DX: Z30.431 Encounter for routine checking of intrauterine contraceptive device (principal) ==

== ENCOUNTER → 2018-08-25 | Outpatient (CLI) | payer OTHER | LOC: FIMAGING 08:17 | PROVIDERS: ATTEND Nurse Practitioner Women's Health | DX: Z30.431 Encounter for routine checking of intrauterine contraceptive device (principal) ==

== ENCOUNTER 2018-12-17 06:11 | Observation (INO) | payer OTHER ==
--- NOTE | 2018-12-16 17:05 | GHP ---
[f rep st] PREOP HISTORY AND PHYSICAL DATE OF PLANNED PROCEDURE: 12/16/2018. PLANNED PROCEDURE: Total laparoscopic hysterectomy with bilateral salpingectomy and cystoscopy. INDICATIONS: Patient is a 43-year-old 0, who has a long-standing history of heavy clotty per iods and significant anemia. Patient changes her DivaCup every 1 to 2 hours. She has had an ultraso und, which showed a large fibroid. She tried conservative therapy with the Mirena 2 separate times, which was expelled twice, even after confirmation of ultrasound showed it was in the right place. Th is was done due to heavy flow. Patient tried control pills prior to the Mirena, which helped. Patient is currently sexually active. She wants reliable contraception, so she will use contr ol pills for now, but she does not want to use them long-term. Patient also has symptoms of pelvic p ressure and urinary frequency. She is requesting definitive therapy with a total laparoscopic hyster ectomy with bilateral salpingectomy. Risks, benefits, and all alternatives have been extensively rev iewed with the patient. The patient has been properly consented. MEDICAL HISTORY: Significant for asthma and seasonal allergies. MEDICATIONS: Albuterol as needed, Singulair 10 mg a day, QVAR during allergy season, and Vashti. SURGICAL HISTORY: None. ALLERGIES: No known drug allergies. She is allergic to several foods, however. SOCIAL HISTORY: The patient is a program or project administrator. She is currently in a relationship. She denies t obacco, alcohol, or tobacco use. She drinks 5 to 6 alcoholic beverages a week. She smokes marijuana every day a few times a week. She denies any other drug use. FAMILY MEDICAL HISTORY: Noncontributory. ADVERTISING DESIGNER HISTORY: Menarche age 13. Periods are 1 to 2 times a month. They are heavy and clotty. She denies any history of any abnormal Pap smears or sexually transmitted diseases. REVIEW OF SYSTEMS: 10-point review of systems is negative, except for the above-mentioned positives of fatigue monthly painful cycles. PHYSICAL EXAMINATION: VITAL SIGNS: Stable. Her blood pressure is 114/62. Her weight is 215. GENE RAL APPEARANCE: Alert and oriented x3. PSYCH: Appropriate affect. MUSCULOSKELETAL: Grossly intac t. NEURO: Grossly intact. HEART: Regular. LUNGS: Clear to auscultation bilaterally. ABDOMEN: Obese, soft, nondistended, nontender. EXTREMITIES: Reveal no calf tenderness or edema. PELVIC: Re veals a mobile, enlarged uterus. IMAGING: Pelvic ultrasound shows uterus measuring 9.6 x 8.6 x 9 cm with a 7.8 x 6.3 x 8.16 cm fibroi d, which occupies the entire uterus. Ovaries are unremarkable. ASSESSMENT/PLAN: 43-year-old 0 with menorrhagia and a fibroid uterus. She is requesting def initive therapy. She will undergo a total laparoscopic hysterectomy with bilateral salpingectomy. R isks and benefits have been extensively reviewed with the patient, as well as alternatives. The jaimie ent has been properly consented. /[id number]/MODL
[2018-12-17] MEDS ORDERED: LR 1,000 ML IV ONE (06:21)
[2018-12-17] MEDS ORDERED: ceFAZolin 2 GM/DEXTROSE 100 ML IV ONE (06:21)
[2018-12-17] MEDS ORDERED: PHENAZOPYRIDINE HCL 100 MG TAB PO ONE (06:21)
--- NOTE | 2018-12-17 06:54 | POSTANESTH ---
Post Anesthetic Evaluation Cardiovascular Status: Normal, Stable Respiratory Status: Normal, Stable Level of Consciousness/Mental Status: Can Participate in Eval, Mildly Sleepy, Arousable Pain Control: Adequate, Prn Tx Ordered Nausea/Vomiting Control: Adequate, Prn Tx Ordered Complications Possibly Related to Anesthesia: None Noted Notes: Pt moving LE bilaterally. No pain or nausea at this time. Pt does report nasal congestion and wants to blow her nose.
[2018-12-17] MEDS ORDERED: BUPIVACAINE 0.5% 30 ML SDV ONE (06:57)
--- NOTE | 2018-12-17 07:01 | PDANEPAE ---
ANE History of Present Illness 43 yo female with menorrhagia for lap SUMMER with salpingectomies. ANE Past Medical History - Cardiovascular History Hx Hypertension: No Hx Arrhythmias: No Hx Chest Pain: No Hx Coronary Artery / Peripheral Vascular Disease: No Hx CHF / Valvular Disease: No Hx Palpitations: No - Pulmonary History Hx COPD: No Hx Asthma/Reactive Airway Disease: No Hx Recent Upper Respiratory Infection: No Hx Oxygen in Use at Home: No Hx Sleep Apnea: No Sleep Apnea Screening Result - Last Documented: Negative Pulmonary History Comment: ALLERGY RELATED ASTHMA - INHALER, no ER visits for RAD. PNEUMONIA W/EMPYEMA 2 YRS AGO W/INSERTION CHEST TUBE, R side - Neurologic History Hx Cerebrovascular Accident: No Hx Seizures: No Hx Dementia: No Neurologic History Comment: INFREQUENT MIGRAINES - Endocrine History Hx Diabetes: No Hypothyroid: No Hyperthyroid: No Obesity: mild - Renal History Hx Renal Disorders: No - Liver History Hx Hepatic Disorders: No - Neurological & Psychiatric Hx Hx Neurological and Psychiatric Disorders: Yes Neurological / Psychiatric History Comment: infrequent migraines - Cancer History Hx Cancer: No - Congenital Disorder History Hx Congenital Disorders: No - GI History Hx Gastrointestinal Disorders: No - Other Health History Other Health History: MENORrHAGIA W/ANEMIA - TAKING IRON - Chronic Pain History Chronic Pain: No - Surgical History Prior Surgeries: NONE ANE Review of Systems Review of Systems: - Exercise capacity METS (RN): 5 METS - Systems Respiratory: Reports: cough (dry cough since early this month with sore throat, no fevers) ANE Patient History - Allergies Allergies/Adverse Reactions: bee pollen Allergy (Verified 12/17/18 06:23) cantaloupe Allergy (Uncoded 12/17/18 06:23) honeydew Allergy (Uncoded 12/17/18 06:23) peaches Allergy (Uncoded 12/17/18 06:23) - Home Medications Home Medications: Beclomethasone Qvar 40 [Qvar 40 Redihaler (*)] 1 inh IH DAILY 11/17/18 [Last Taken Unknown] Calcium Carbonate [Oyster Shell Calcium 500 mg (*)] 500 mg PO DAILY 11/17/18 [ Last Taken Unknown] Fexofenadine HCl [Vashti Allergy] 180 mg PO DAILY 11/17/18 [Last Taken Unknown] Montelukast Sodium [Singulair 10 mg (*)] 10 mg PO HS 11/17/18 [Last Taken Unknown] Norethindrone AC-Eth Estradiol [Microgestin 21 1.5-30 Tab] 1 each PO DAILY 11/17 [Last Taken Unknown] - NPO status NPO Since - Liquids (Date): 12/17/18 NPO Since - Liquids (Time): 04:00 NPO Since - Solids (Date): 12/16/18 NPO Since - Solids (Time): 20:00 - Anes Hx Anes Hx: no prior problems - Smoking Hx Smoking Status: Never smoked Marijuana use: Yes - Alcohol Use Alcohol Use: Occasionally (4/week) - Family Anes Hx Family Hx Anesthesia Complications: NEG ANE Labs/Vital Signs - Vital Signs Blood Pressure: 128/80 Heart Rate: 68 Respiratory Rate: 16 O2 Sat (%): 96 Height: 165.1 cm Weight: 95.254 kg ANE Physical Exam - Airway Neck exam: FROM Mallampati Score: Class 2 Mouth exam: normal dental/mouth exam - Pulmonary Pulmonary: clear to auscultation, reduced air movement (R base) - Cardiovascular Cardiovascular: regular rate and rhythym - ASA Status ASA Status: II ANE Anesthesia Plan Anesthesia Plan: general endotracheal anesthesia
--- NOTE | 2018-12-17 07:14 | PDHPUP ---
History & Physical Update H&P update statement: This history and physical update is based on an assessment of the patient which was completed after admission or registration (within 24 hours), but prior to the surgery/procedure. H&P update: H&P reviewed & patient examined, no change in patient's condition since H&P completed
[2018-12-17] MEDS ORDERED: ALBUTEROL 60 PUFFS/8 GM MDI IH ONE ×2 (07:18→07:21)
[2018-12-17] MEDS ORDERED: morphINE PF 5 MG/10 ML INJ ONE (07:35)
[2018-12-17] MEDS ORDERED: PROPOFOL/EMULSION 500 MG/50 ML BOTTLE IV ONE (07:35)
[2018-12-17] MEDS ORDERED: LIDOCAINE 2% 5 ML SDV ONE (07:35)
[2018-12-17] MEDS ORDERED: ROCURONIUM 100 MG/10 ML VIAL ONE (07:35)
[2018-12-17] MEDS ORDERED: PROPOFOL 200 MG/20 ML VIAL ONE ×2 (08:57)
[2018-12-17] MEDS ORDERED: ONDANSETRON 4 MG/2 ML VIAL ONE (10:12)
[2018-12-17] MEDS ORDERED: fentaNYL 100 MCG/2 ML INJ IVP PRN (10:57)
[2018-12-17] MEDS ORDERED: ALBUTEROL 3 ML DEYVIAL IH PRN (10:57)
[2018-12-17] MEDS ORDERED: PROMETHAZINE HCL 25 MG/ML INJ IVP PRN (10:57)
[2018-12-17] MEDS ORDERED: oxyCODONE IR 5 MG TAB PO PRN ×2 (10:57→11:14)
[2018-12-17] MEDS ORDERED: LR 500 ML IV PRN (10:57)
[2018-12-17] MEDS ORDERED: NALOXONE HCL 0.4 MG/ML INJ IVP PRN (10:57)
[2018-12-17] MEDS ORDERED: NEOSTIGMINE METHYLSULFATE 5 MG/5 ML SYR ONE (11:02)
[2018-12-17] MEDS ORDERED: GLYCOPYRROLATE 0.2 MG/1 ML VIAL ONE ×2 (11:02→11:08)
[2018-12-17] MEDS ORDERED: POLYETHYLENE GLYCOL 3350 17 GM PKT PO PRN (11:10)
[2018-12-17] MEDS ORDERED: MAGNESIUM HYDROXIDE 30 ML UDCUP PO PRN (11:10)
[2018-12-17] MEDS ORDERED: ONDANSETRON 4 MG/2 ML VIAL IVP PRN (11:10)
[2018-12-17] MEDS ORDERED: LACTULOSE 20 GM/30 ML UDCUP PO PRN (11:10)
[2018-12-17] MEDS ORDERED: BISACODYL 10 MG SUPP PR PRN (11:10)
[2018-12-17] MEDS ORDERED: KETOROLAC 30 MG/1 ML SDV IVP ONE (11:10)
[2018-12-17] MEDS ORDERED: LR 1,000 ML IV SCH (11:30)
[2018-12-17] MEDS: ACETAMINOPHEN 500 MG TAB PO SCH (14:08)
[2018-12-17] MEDS ORDERED: KETOROLAC 30 MG/1 ML SDV IVP PRN (16:30)
--- NOTE | 2018-12-17 17:18 | SOAPPROG ---
SOAP Progress Note Assessment/Plan: Assessment: pod# 0 s/p TLH BS uncomplicated post operative course increase activity Plan: 12/17/18 17:14 Subjective: patient is doing well. pain is very well controlled. minimal vaginal bleeding. only pain is coming from IV site. voiding without difficulty. ambulating in her room. tolerating diet. Objective: Vital Signs Temp Pulse Resp BP Pulse Ox 37.1 C 58 L 15 98/58 L 97 12/17/18 14:50 12/17/18 14:50 12/17/18 14:50 12/17/18 14:50 12/17/18 14:50 12/16/18 12/17/18 12/18/18 05:59 05:59 05:59 Intake Total 1115 Output Total 600 Balance 515 Physical Exam - Physical Exam General Appearance: WD/WN, alert, no apparent distress Neck: non-tender, full range of motion, supple Respiratory: chest non-tender, lungs clear, normal breath sounds Cardiac/Chest: normal peripheral pulses, regular rate, rhythm Abdomen: normal bowel sounds, non-tender, soft Skin: normal color, warm/dry Extremities: normal range of motion, non-tender, normal inspection, normal capillary refill Neuro/Psych: no motor/sensory deficits, alert, normal mood/affect, oriented x 3 ICD10 Worksheet Patient Problems: Problems Problem Status Onset Pleural effusion Acute
--- NOTE | 2018-12-17 17:44 | GOP ---
[f rep st] OPERATIVE REPORT DATE OF OPERATION: 12/17/2018 SURGEON: Marie Arboleda DO SHREDDING MACHINE OPERATOR: Dr. Swartz. ANESTHESIA: Intrathecal morphine with general endotracheal tube. ANESTHESIOLOGIST: Jessy Reddy MD. PREOPERATIVE DIAGNOSIS: Dysfunctional uterine bleeding and a fibroid uterus. POSTOPERATIVE DIAGNOSIS: Dysfunctional uterine bleeding and a fibroid uterus. PROCEDURE PERFORMED: Total laparoscopic hysterectomy with bilateral salpingectomy and cystoscopy. FINDINGS: 1. Exam under anesthesia: Mobile enlarged uterus with no adnexal masses. 2. Laparoscopic findings: Enlarged fibroid uterus. SPECIMENS: Uterus, cervix, bilateral fallopian tubes. ESTIMATED BLOOD LOSS: 200 cc. INDICATIONS: Patient is a 43-year-old 0 with a longstanding history of heavy clotty periods and significant anemia. She has tried conservative management including a Mirena IUD which expelled itself twice and oral contraception. She is requesting definitive therapy with a total laparoscopic hysterectomy with bilateral salpingectomy. Risks and benefits have been extensively reviewed with th e patient. The patient has been properly consented. DESCRIPTION OF PROCEDURE: Patient was taken to the operating room with intravenous fluids in place. She was given 2 g of Ancef intravenously. She was also given p.o. Pyridium prior to the surgery. S he was then placed on the operating room table where intrathecal morphine was obtained. She was then repositioned into the dorsal supine position and then into the dorsal lithotomy position with the Ye llofin stirrups. She was then prepped and draped in a normal sterile fashion. Venodynes were on her lower extremities. Exam under anesthesia revealed a mobile enlarged uterus with no adnexal masses. A speculum was then placed in the patient's vagina. A single-tooth tenaculum was used to grasp the anterior lip of the cervix. The cervix sounded to 12 cm. A 10 cm NACHO tip and the medium cup were t hen assembled after that and the endo balloons were tested and inserted without difficulty. A Mcmillan catheter was also placed. Attention was then turned to the patient's abdomen where a 5 mm skin incis ion was then made in the patient's umbilicus. A 5 mm trocar was then advanced into the patient's abd omen under direct visualization with a laparoscope. The abdomen was then insufflated with CO2 gas un til an adequate pneumoperitoneum was achieved. The area underneath the trocar insertion site was fou nd to be adequate. A 5 mm skin incision was then made in the patient's right lower quadrant. A 5 mm trocar was then advanced into the patient's abdomen under direct visualization. The laparoscope was then inserted, and the umbilical trocar site was evaluated and found to be unremarkable. The laparo scope was then reinserted through the umbilical port, and a 5 mm incision was then made in the patien t's left lower quadrant under direct visualization with the laparoscope. The uterus was noted to be large, taking up most of the pelvis. Bilateral ovaries were unremarkable. Bilateral fallopian tubes were slightly thickened, and there was a left fallopian tube cyst. The LigaSure was then used to cl amp, cauterize, and transect the left utero-ovarian ligament, left round ligament and left broad liga ment. The uterine arteries were skeletonized, clamped, cauterized, and transected, and the bladder f lap was created anteriorly. The LigaSure was then used in the same fashion on the right side down to the uterine arteries which were skeletonized, clamped, cauterized, and transected. The bladder was dissected well off the colpotomy ring. The colpotomy ring was easily identified. The LigaSure hook was then used to perform the colpotomy. The Pneumo occluder balloon was inflated prior to this happe jason. Once the colpotomy had been performed, the NACHO was then withdrawn, and the cervix was grasped with a hemostat. We attempted to remove the uterus intact at that time. However, it was too bulky at the fundus to remove. Williamson scissors and a scalpel were used to intravaginally morcellate the uter us with constant retraction. The uterus was then withdrawn through the vagina, and the specimen was then handed off. A DAVID drain bulb was then cut at the top, and a V-Loc suture was then inserted into the bulb and inserted and then inserted into the vagina. Laparoscopically, we then were able to retr ieve the suture. The 0 V-Loc suture with the curved needle was then used in a running fashion to kaylah se the vaginal cuff. We started at the angle and went across the vaginal cuff and then went group home back to the midline with the suture. The suture was then cut. The ends of the needle were then gras ped with 2 separate instruments and stretched. The tail of the suture was then grasped, and the need le was then withdrawn into the 5 mm port, and the entire trocar was then removed from the patient's a bdomen. The needle was removed from the trocar,and the trocar was then reinserted. At that time, th e bilateral fallopian tubes were then removed as well as the left cyst in the mesosalpinx. These wer e withdrawn through the trocars without difficulty. The ureters were noted to be peristalsing bilate rally. The pedicles were found to be hemostatic. The vaginal cuff was found to be hemostatic. A cy stoscopy was performed. The Mcmillan catheter was then removed. The 70-degree cystoscope was then intr oduced through the urethra, and the bladder was distended with 300 cc of urine. The dome of the blad desean was evaluated, and the bubble was noted. No suture was noted to be within the bladder. Bilatera l ureteral orifices were identified and jets were noted. A cystoscope was then withdrawn. The bladd er was then drained. Speculum exam was then performed, and the apex of vagina was noted to be well s uspended. Attention was then turned to the patient's abdomen where CO2 gas was expressed from the pa tient's abdomen, and the trocars were then removed. 4-0 Monocryl was then used to close the trocar s kin incisions. The patient was then returned to the dorsal supine position where she was easily awok en from anesthesia. Sponge, lap, needle count correct x2. Patient was transported to recovery room in stable condition. /[id number]/MODL
[2018-12-17] MEDS: SENNOSIDES/DOCUSATE SODIUM TAB PO SCH (21:00)
[2018-12-17] MEDS ORDERED: MONTELUKAST SODIUM 10 MG TAB PO SCH (21:00)
[2018-12-18] MEDS: ACETAMINOPHEN 500 MG TAB PO SCH ×2 (00:35→08:15)
[2018-12-18] MEDS: IBUPROFEN 600 MG TAB PO SCH ×2 (04:30→10:18)
[2018-12-18] MEDS ORDERED: CETIRIZINE 10 MG TAB PO SCH (09:00)
[2018-12-18] MEDS ORDERED: ENOXAPARIN 40 MG/0.4 ML SYR SC SCH (09:00)
[2018-12-18 09:02] VITALS: BP 115/68
--- NOTE | 2018-12-18 09:27 | SOAPPROG ---
SOAP Progress Note Assessment/Plan: Assessment: pod# 1 s/p TLH BS uncomplicated post operative course increase activity anemia - iron 12/18/18 09:25 Subjective: patient is doing great. pain is well controlled. scant vaginal bleeding. passing gas. voiding without difficulty. ambulating. no concerns. ready to go home. Objective: Vital Signs Temp Pulse Resp BP Pulse Ox 36.9 C 77 16 115/68 96 12/18/18 08:00 12/18/18 08:00 12/18/18 08:00 12/18/18 08:00 12/18/18 08:00 Laboratory Results 12/18/18 04:35 12/17/18 12/18/18 12/19/18 05:59 05:59 05:59 Intake Total 1465 Output Total 1550 Balance -85 Physical Exam - Physical Exam General Appearance: WD/WN, alert, no apparent distress Neck: non-tender, full range of motion, supple Respiratory: chest non-tender, lungs clear, normal breath sounds Cardiac/Chest: normal peripheral pulses, regular rate, rhythm Abdomen: normal bowel sounds, non-tender, soft Skin: normal color, warm/dry, other (incicisons covered) Extremities: normal range of motion, non-tender, normal inspection, normal capillary refill Neuro/Psych: no motor/sensory deficits, alert, normal mood/affect, oriented x 3 ICD10 Worksheet Patient Problems: Problems Problem Status Onset Dysfunctional uterine bleeding Acute Pleural effusion Acute
[2018-12-18] MEDS ORDERED: FERRO-SEQUELS 65 MG TAB.ER PO SCH (09:30)
[2018-12-18] MEDS: SENNOSIDES/DOCUSATE SODIUM TAB PO SCH (10:58)
== END 2018-12-18 10:30 | disposition home or self-care (01) ==
LOC: F3E 06:11 → FOB 12:50
PROVIDERS: ADMIT Obstetrics & Gynecology; ATTEND Obstetrics & Gynecology
DX: D25.9 Leiomyoma of uterus, unspecified (principal); N93.8 Other specified abnormal uterine and vaginal bleeding; N92.0 Excessive and frequent menstruation with regular cycle; D50.9 Iron deficiency anemia, unspecified; R35.0 Frequency of micturition; J45.909 Unspecified asthma, uncomplicated
CPT/HCPCS: 58573; 71045; G0378; J0690; J1650; J1885; J2274; J2405; J2704; J2710